=== PATIENT | female | born 1980 | race Caucasian/White ===

== ENCOUNTER 2020-12-16 16:33 | Inpatient (IN) | payer MEDICARE, OTHER ==
[2020-12-16] MEDS ORDERED: methylPREDNISolone Sod Succ/PF 125 MG/2 ML VIAL ONE (17:09)
[2020-12-16] MEDS ORDERED: cefTRIAXone\\ROCEPHIN 2 GM VIAL ONE (17:10)
[2020-12-16 17:43] LABS: BHCG - Serum Negative (NEGATIVE); Pregs Control Background? CLEAR/WHITE (CLR/WHITE); Pregs Control Bar Appear? YES (CONTROL BAR)
[2020-12-16 17:46] LABS: ALT (SGPT) 18 U/L (8-55); AST (SGOT) 28 U/L (5-34); Albumin 3.6 g/dL (3.5-5.0); Alkaline Phosphatase 95 U/L (40-110); Anion Gap 15 mmol/L (10-20); BUN (Urea Nitrogen) 20 mg/dL (7.0-18.7); Bilirubin, Total 0.8 mg/dL (0.2-1.2); CK (CPK) 67 U/L (29-168); Calc. Creatinine Clearance 0 mL/min (70-130); Calcium 7.9 mg/dL (7.8-10.44); Carbon Dioxide 25 mmol/L (22-29); Chloride 101 mmol/L (98-107); Globulin 4.1 g/dL (2.4-3.5); Glucose 111 mg/dL (70-105); Potassium 3.8 mmol/L (3.5-5.1); Protein, Total 7.7 g/dL (6.0-8.3); Sodium 137 mmol/L (136-145)
[2020-12-16] MEDS ORDERED: Azithromycin 500 MG VIAL ONE (17:47)
[2020-12-16 17:58] LABS: #Basophils 0.1 10x3/uL (0.0-0.2); #Eosinphils 0.1 10x3/uL (0.0-0.5); #Monocytes 0.5 10x3/uL (0.0-1.1); #Neutrophils 9.6 10x3/uL (1.5-8.4); %Basophils 0.5 % (0.0-2.0); %Eosinophils 0.6 % (0.0-6.0); %Lymphocytes 4.9 % (18.0-47.0); %Neutrophils 88.7 % (40.0-75.0); Hemoglobin 13.6 g/dL (12.0-15.5); Mean Corpuscular HGB CONC 31.5 g/dL (32.0-36.0); Mean Corpuscular Hemoglobin 35.3 pg (27.0-33.0); Mean Corpuscular Volume 112.2 fl (81.6-98.3); Mean Platelet Volume 11.4 fl (7.4-10.4); Platelet Count 117 10x3/uL (150-450); RBC Distribution Width 15.6 % (11.5-14.5); Red Blood Cell (RBC) Count 3.85 10x6/uL (3.90-5.03); White Blood Cell (WBC) Count 10.8 10x3/uL (3.5-10.5)
[2020-12-16] MEDS ORDERED: Furosemide 40 MG/4 ML VIAL ONE (18:53)
[2020-12-16] MEDS ORDERED: Aspirin Chewable 81 MG TAB PO SCH (20:15)
[2020-12-16 21:19] LABS: SARS-CoV-2 NAA Rapid Test Not Detected (NotDetected)
[2020-12-16 21:26] LABS: Iron 20 ug/dL (50-170); Iron Binding Capacity, Total 335 mcg/dL (265-497)
[2020-12-16 21:32] LABS: Troponin I 0.011 ng/mL (< 0.028)
[2020-12-16 21:48] LABS: Ferritin 43.58 ng/mL (10-291)
[2020-12-16] MEDS: Cefepime 2 GM in Sodium Chloride 0.9% 100 ML IVPB SCH (23:27)
[2020-12-17 04:09] VITALS: BMI 51.7
[2020-12-17 04:16] LABS: #Monocytes 0.1 10x3/uL (0.0-1.1); #Neutrophils 11.5 10x3/uL (1.5-8.4); %Basophils 0.2 % (0.0-2.0); %Lymphocytes 3.1 % (18.0-47.0); %Monocytes 0.8 % (0.0-10.0); %Neutrophils 95.2 % (40.0-75.0); Hemoglobin 12.3 g/dL (12.0-15.5); Mean Corpuscular Hemoglobin 34.8 pg (27.0-33.0); Mean Corpuscular Volume 108.8 fl (81.6-98.3); Mean Platelet Volume 10.8 fl (7.4-10.4); Platelet Count 115 10x3/uL (150-450); RBC Distribution Width 15.6 % (11.5-14.5); Red Blood Cell (RBC) Count 3.53 10x6/uL (3.90-5.03); White Blood Cell (WBC) Count 12.1 10x3/uL (3.5-10.5)
[2020-12-17 04:22] LABS: Anion Gap 14 mmol/L (10-20); BUN (Urea Nitrogen) 23 mg/dL (7.0-18.7); Calc. Creatinine Clearance 148 mL/min (70-130); Calcium 7.5 mg/dL (7.8-10.44); Carbon Dioxide 23 mmol/L (22-29); Chloride 105 mmol/L (98-107); Glucose 157 mg/dL (70-105); Potassium 3.8 mmol/L (3.5-5.1); Sodium 138 mmol/L (136-145)
[2020-12-17] MEDS: Furosemide 40 MG/4 ML VIAL SLOW IVP SCH ×3 (05:50→13:38)
[2020-12-17] MEDS: Cefepime 2 GM in Sodium Chloride 0.9% 100 ML IVPB SCH ×3 (05:50→22:54)
[2020-12-17] MEDS: Mometasone 100 MCG/Formoterol 5 MCG 120 PUFF INHALER INH SCH ×2 (06:49→19:30)
[2020-12-17] MEDS: Cholecalciferol 1,000 UNITS (25 MCG) TAB PO SCH (08:45)
[2020-12-17] MEDS: Aspirin 81 mg Enteric Coated Tablet PO SCH (08:46)
[2020-12-17] MEDS: Cyanocobalamin (Vitamin B-12) 1,000 MCG TAB PO SCH (08:46)
[2020-12-17] MEDS: Enoxaparin Sodium 40 MG/0.4 ML SYRINGE SC SCH (08:47)
[2020-12-17] MEDS: Lisinopril 2.5 MG TAB PO SCH (08:50)
[2020-12-17] MEDS: Loratadine 10 MG TAB PO SCH (08:51)
[2020-12-17] MEDS: Ubidecarenone 50 MG CAP PO SCH ×2 (08:52→20:55)
[2020-12-17] MEDS ORDERED: Furosemide 40 MG TAB PO SCH (09:00)
[2020-12-17] MEDS ORDERED: Tadalafil [Adcirca] 20 MG Tablet PO SCH (09:00)
[2020-12-17] MEDS ORDERED: AMBRISENTAN 10 MG PO SCH (09:00)
[2020-12-17] MEDS: Fluticasone Propionate Nasal Spray 16 gm Bottle NASAL SCH ×2 (09:19→20:55)
[2020-12-17] MEDS: Vancomycin HCl 1.25 GM in Sodium Chloride 0.9% 250 ML 250 ML IVPB SCH ×2 (09:20→20:55)
[2020-12-17 15:25] LABS: Bilirubin Neg (Negative); Blood, Urine 10 (Negative); Clarity Clear (Clear); Glucose, Urine (Dipstick) Normal (Negative); Ketone, Urine Negative (Negative); Leukocyte Negative (Negative); Nitrite Negative (Negative); Protein, Urine (Dipstick) Negative (Neg-Trace); Specific Gravity, Urine 1.015 (1.002-1.036); Urobilinogen Normal mg/dL (Less than 2)
[2020-12-17 16:16] LABS: Bacteria/HPF Rare-Few HPF (None Seen); RBC/HPF 0-3 HPF (0-3); Squamous Epithelial 0-3 HPF (0-3); WBC/HPF None Seen HPF (0-3)
[2020-12-17] MEDS: Communication Order-Pharmacy FS SCH (20:00)
[2020-12-18] MEDS: Cefepime 2 GM in Sodium Chloride 0.9% 100 ML IVPB SCH ×3 (05:22→22:36)
[2020-12-18] MEDS: Furosemide 40 MG/4 ML VIAL SLOW IVP SCH ×2 (05:22→13:57)
[2020-12-18 05:57] LABS: Anion Gap 14 mmol/L (10-20); BUN (Urea Nitrogen) 28 mg/dL (7.0-18.7); Calc. Creatinine Clearance 142 mL/min (70-130); Calcium 7.8 mg/dL (7.8-10.44); Carbon Dioxide 25 mmol/L (22-29); Chloride 102 mmol/L (98-107); Glucose 92 mg/dL (70-105); Potassium 4.2 mmol/L (3.5-5.1); Sodium 137 mmol/L (136-145)
[2020-12-18] MEDS: Mometasone 100 MCG/Formoterol 5 MCG 120 PUFF INHALER INH SCH ×2 (07:05→18:40)
[2020-12-18] MEDS: Communication Order-Pharmacy FS SCH (08:21)
[2020-12-18] MEDS: Vancomycin HCl 1.25 GM in Sodium Chloride 0.9% 250 ML 250 ML IVPB SCH (08:33)
[2020-12-18] MEDS: Cyanocobalamin (Vitamin B-12) 1,000 MCG TAB PO SCH (08:34)
[2020-12-18] MEDS: Cholecalciferol 1,000 UNITS (25 MCG) TAB PO SCH (08:34)
[2020-12-18] MEDS: Aspirin 81 mg Enteric Coated Tablet PO SCH (08:34)
[2020-12-18] MEDS: Loratadine 10 MG TAB PO SCH (08:34)
[2020-12-18] MEDS: Lisinopril 2.5 MG TAB PO SCH (08:34)
[2020-12-18] MEDS: Enoxaparin Sodium 40 MG/0.4 ML SYRINGE SC SCH (08:35)
[2020-12-18] MEDS: Fluticasone Propionate Nasal Spray 16 gm Bottle NASAL SCH ×2 (08:35→21:11)
[2020-12-18] MEDS: Ubidecarenone 50 MG CAP PO SCH ×2 (08:42→21:11)
[2020-12-18 09:09] LABS: Vancomycin, Trough 16.5 ug/mL
[2020-12-18] MEDS: Vancomycin HCl 1 GM in Sodium Chloride 0.9% 250 ML 250 ML IVPB SCH (21:02)
[2020-12-19 04:44] LABS: #Basophils 0.1 10x3/uL (0.0-0.2); #Eosinphils 0.1 10x3/uL (0.0-0.5); #Monocytes 0.4 10x3/uL (0.0-1.1); #Neutrophils 5.3 10x3/uL (1.5-8.4); %Eosinophils 1.3 % (0.0-6.0); %Lymphocytes 15.1 % (18.0-47.0); %Monocytes 5.6 % (0.0-10.0); %Neutrophils 76.6 % (40.0-75.0); Hemoglobin 13.1 g/dL (12.0-15.5); Mean Corpuscular HGB CONC 31.8 g/dL (32.0-36.0); Mean Corpuscular Hemoglobin 35.2 pg (27.0-33.0); Mean Corpuscular Volume 110.8 fl (81.6-98.3); Mean Platelet Volume 11.4 fl (7.4-10.4); Platelet Count 127 10x3/uL (150-450); RBC Distribution Width 15.6 % (11.5-14.5); Red Blood Cell (RBC) Count 3.72 10x6/uL (3.90-5.03)
[2020-12-19 05:01] LABS: ALT (SGPT) 14 U/L (8-55); AST (SGOT) 18 U/L (5-34); Albumin 3.1 g/dL (3.5-5.0); Alkaline Phosphatase 73 U/L (40-110); Anion Gap 13 mmol/L (10-20); BUN (Urea Nitrogen) 28 mg/dL (7.0-18.7); Bilirubin, Total 0.6 mg/dL (0.2-1.2); Calc. Creatinine Clearance 136 mL/min (70-130); Carbon Dioxide 27 mmol/L (22-29); Chloride 104 mmol/L (98-107); Globulin 3.6 g/dL (2.4-3.5); Glucose 94 mg/dL (70-105); Potassium 4.7 mmol/L (3.5-5.1); Protein, Total 6.7 g/dL (6.0-8.3); Sodium 139 mmol/L (136-145)
[2020-12-19] MEDS: Cefepime 2 GM in Sodium Chloride 0.9% 100 ML IVPB SCH (05:10)
[2020-12-19] MEDS: Furosemide 40 MG/4 ML VIAL SLOW IVP SCH (05:11)
[2020-12-19 06:34] LABS: Macrocytosis MODERATE=16-30 cells (100X) (0-5/hpf)
[2020-12-19] MEDS: Mometasone 100 MCG/Formoterol 5 MCG 120 PUFF INHALER INH SCH (08:20)
[2020-12-19] MEDS: Enoxaparin Sodium 40 MG/0.4 ML SYRINGE SC SCH (08:38)
[2020-12-19] MEDS: Communication Order-Pharmacy FS SCH (08:38)
[2020-12-19] MEDS: Ubidecarenone 50 MG CAP PO SCH (08:39)
[2020-12-19] MEDS: Loratadine 10 MG TAB PO SCH (08:39)
[2020-12-19] MEDS: Fluticasone Propionate Nasal Spray 16 gm Bottle NASAL SCH (08:39)
[2020-12-19] MEDS: Cyanocobalamin (Vitamin B-12) 1,000 MCG TAB PO SCH (08:39)
[2020-12-19] MEDS: Aspirin 81 mg Enteric Coated Tablet PO SCH (08:39)
[2020-12-19] MEDS: Cholecalciferol 1,000 UNITS (25 MCG) TAB PO SCH (08:39)
[2020-12-19] MEDS: Lisinopril 2.5 MG TAB PO SCH (08:39)
[2020-12-19] MEDS: Vancomycin HCl 1 GM in Sodium Chloride 0.9% 250 ML 250 ML IVPB SCH (08:40)
[2020-12-19 12:11] VITALS: BP 98/61; TEMP 98.2
== END 2020-12-19 12:16 | disposition home or self-care (01) | DRG 871 ==
LOC: CSHERS 16:33 → CJX 16:33 → CSHICU 21:00 → CSHTELE 12-17 15:36
PROVIDERS: ADMIT Family Medicine; ATTEND Internal Medicine
DX: A41.9 Sepsis, unspecified organism (principal); J96.01 Acute respiratory failure with hypoxia; I50.31 Acute diastolic (congestive) heart failure; J18.9 Pneumonia, unspecified organism; Z68.43 Body mass index [BMI] 50.0-59.9, adult; I11.0 Hypertensive heart disease with heart failure; Z20.822 Contact with and (suspected) exposure to COVID-19; Q90.9 Down syndrome, unspecified; I27.21 Secondary pulmonary arterial hypertension; G47.33 Obstructive sleep apnea (adult) (pediatric); E66.01 Morbid (severe) obesity due to excess calories; J45.909 Unspecified asthma, uncomplicated; D53.9 Nutritional anemia, unspecified; D69.6 Thrombocytopenia, unspecified; Z90.89 Acquired absence of other organs; Z79.899 Other long term (current) drug therapy; E78.5 Hyperlipidemia, unspecified; Q24.9 Congenital malformation of heart, unspecified
CPT/HCPCS: 36415; 71045; 80048; 80053; 80202; 81001; 82550; 82607; 82728; 82746; 83540; 83550; 83605; 83735; 83880; 84145; 84443; 84484; 84703; 85025; 87040; 93005; 93010; 93306; 94664; 94760; 96365; 96367; 96375; J0456; J0692; J0696; J1650; J1940; J1956; J2930; J3370; J3490; J7030; J7050; U0002

== ENCOUNTER 2020-12-30 16:05 | Inpatient (IN) | payer MEDICARE, OTHER ==
[2020-12-30 16:50] LABS: #Basophils 0.1 10x3/uL (0.0-0.2); #Monocytes 0.5 10x3/uL (0.0-1.1); #Neutrophils 10.7 10x3/uL (1.5-8.4); %Basophils 0.6 % (0.0-2.0); %Eosinophils 0.3 % (0.0-6.0); %Lymphocytes 5.2 % (18.0-47.0); %Monocytes 4.4 % (0.0-10.0); %Neutrophils 88.9 % (40.0-75.0); Hemoglobin 13.1 g/dL (12.0-15.5); Mean Corpuscular Hemoglobin 35.2 pg (27.0-33.0); Mean Corpuscular Volume 110.2 fl (81.6-98.3); Mean Platelet Volume 10.9 fl (7.4-10.4); Platelet Count 143 10x3/uL (150-450); RBC Distribution Width 15.5 % (11.5-14.5); Red Blood Cell (RBC) Count 3.72 10x6/uL (3.90-5.03)
[2020-12-30 17:02] LABS: ALT (SGPT) 20 U/L (8-55); AST (SGOT) 26 U/L (5-34); Albumin 3.7 g/dL (3.5-5.0); Alkaline Phosphatase 104 U/L (40-110); Anion Gap 15 mmol/L (10-20); BUN (Urea Nitrogen) 16 mg/dL (7.0-18.7); Bilirubin, Total 0.9 mg/dL (0.2-1.2); Calc. Creatinine Clearance 0 mL/min (70-130); Calcium 8.8 mg/dL (7.8-10.44); Carbon Dioxide 28 mmol/L (22-29); Chloride 98 mmol/L (98-107); Globulin 4.5 g/dL (2.4-3.5); Glucose 98 mg/dL (70-105); Potassium 3.3 mmol/L (3.5-5.1); Protein, Total 8.2 g/dL (6.0-8.3); Sodium 138 mmol/L (136-145)
[2020-12-30] MEDS ORDERED: Cefepime 2 GM VIAL ONE (17:12)
[2020-12-30] MEDS ORDERED: Furosemide 40 MG/4 ML VIAL ONE (18:22)
[2020-12-30 18:24] LABS: Bilirubin Neg (Negative); Blood, Urine 50 (Negative); Clarity Slightly Cloudy (Clear); Glucose, Urine (Dipstick) Normal (Negative); Ketone, Urine Negative (Negative); Leukocyte 100 (Negative); Nitrite Negative (Negative); Protein, Urine (Dipstick) Negative (Neg-Trace); Urobilinogen Normal mg/dL (Less than 2); pH, Urine 6.5 (5.0-9.0)
[2020-12-30 19:01] LABS: Bacteria/HPF 4+ HPF (None Seen); Transitional Epithelial 0-3 HPF (None Seen)
[2020-12-30 19:04] LABS: Yeast-Budding Rare HPF (None Seen)
[2020-12-30 19:59] LABS: Lactic Acid 2.3 mmol/L (0.5-2.2)
[2020-12-30 20:05] LABS: Troponin I Less than 0.010 ng/mL (< 0.028)
[2020-12-30 20:14] LABS: SARS-CoV-2 NAA Rapid Test Not Detected (NotDetected)
[2020-12-30] MEDS ORDERED: Aspirin 325 MG TAB PO SCH (22:00)
[2020-12-30] MEDS ORDERED: Vancomycin HCl 1 GM in Sodium Chloride 0.9% 250 ML 250 ML IVPB SCH (22:00)
[2020-12-30 22:40] VITALS: BMI 45.7
[2020-12-30] MEDS: Potassium Chloride 20 MEQ TAB PO SCH (22:57)
[2020-12-30] MEDS ORDERED: Furosemide 40 MG/4 ML VIAL SLOW IVP SCH (23:00)
[2020-12-30 23:22] LABS: Troponin I Less than 0.010 ng/mL (< 0.028)
[2020-12-31] MEDS: Potassium Chloride 20 MEQ TAB PO SCH (03:05)
[2020-12-31] MEDS: Cefepime 2 GM in Sodium Chloride 0.9% 100 ML IVPB SCH ×2 (03:07→15:05)
[2020-12-31 03:59] LABS: #Monocytes 0.4 10x3/uL (0.0-1.1); #Neutrophils 6.9 10x3/uL (1.5-8.4); %Basophils 0.5 % (0.0-2.0); %Eosinophils 0.5 % (0.0-6.0); %Lymphocytes 12.3 % (18.0-47.0); %Monocytes 4.4 % (0.0-10.0); %Neutrophils 82.1 % (40.0-75.0); Hemoglobin 11.6 g/dL (12.0-15.5); Mean Corpuscular HGB CONC 32.2 g/dL (32.0-36.0); Mean Corpuscular Hemoglobin 34.8 pg (27.0-33.0); Mean Corpuscular Volume 108.1 fl (81.6-98.3); Mean Platelet Volume 10.7 fl (7.4-10.4); Platelet Count 123 10x3/uL (150-450); RBC Distribution Width 15.3 % (11.5-14.5); Red Blood Cell (RBC) Count 3.33 10x6/uL (3.90-5.03); White Blood Cell (WBC) Count 8.4 10x3/uL (3.5-10.5)
[2020-12-31 04:12] LABS: Anion Gap 13 mmol/L (10-20); BUN (Urea Nitrogen) 15 mg/dL (7.0-18.7); Calc. Creatinine Clearance 149 mL/min (70-130); Calcium 8.1 mg/dL (7.8-10.44); Carbon Dioxide 25 mmol/L (22-29); Chloride 103 mmol/L (98-107); Glucose 92 mg/dL (70-105); Potassium 3.7 mmol/L (3.5-5.1); Sodium 137 mmol/L (136-145)
[2020-12-31 04:16] LABS: Troponin I Less than 0.010 ng/mL (< 0.028)
[2020-12-31] MEDS: Fluticasone Propionate Nasal Spray 16 gm Bottle NASAL SCH ×3 (04:49→21:37)
[2020-12-31] MEDS: Furosemide 40 MG/4 ML VIAL SLOW IVP SCH ×2 (06:15→15:05)
[2020-12-31] MEDS: Mometasone/Formoterol 60 PUFF AER INH SCH ×2 (07:54→19:40)
[2020-12-31] MEDS ORDERED: AMBRISENTAN 10 MG PO SCH (09:00)
[2020-12-31] MEDS ORDERED: Tadalafil [Adcirca] 20 MG Tablet PO SCH (09:00)
[2020-12-31] MEDS: Aspirin Chewable 81 MG TAB PO SCH (09:19)
[2020-12-31] MEDS: Vancomycin HCl 1.5 GM in Sodium Chloride 0.9% 250 ML 300 ML IVPB SCH ×2 (09:19→21:47)
[2020-12-31] MEDS: Cholecalciferol 1,000 UNITS (25 MCG) TAB PO SCH (09:20)
[2020-12-31] MEDS: Ubidecarenone 50 MG CAP PO SCH ×2 (09:20→21:38)
[2020-12-31] MEDS: Loratadine 10 MG TAB PO SCH (09:20)
[2020-12-31] MEDS: Cyanocobalamin (Vitamin B-12) 1,000 MCG TAB PO SCH (09:20)
[2020-12-31] MEDS: Enoxaparin Sodium 40 MG/0.4 ML SYRINGE SC SCH (09:21)
[2020-12-31 22:44] LABS: Bilirubin Neg (Negative); Blood, Urine 150 (Negative); Clarity Cloudy (Clear); Glucose, Urine (Dipstick) Normal (Negative); Ketone, Urine Negative (Negative); Leukocyte 500 (Negative); Nitrite Negative (Negative); Protein, Urine (Dipstick) Negative (Neg-Trace); Urobilinogen Normal mg/dL (Less than 2)
[2020-12-31 22:49] LABS: Urine Culture Reflex No No
[2020-12-31 23:06] LABS: Bacteria/HPF 4+ HPF (None Seen); RBC/HPF 0-3 HPF (0-3)
[2021-01-01] MEDS: Guaifenesin DM 100-10/5 ML UDCUP PO PRN (03:19)
[2021-01-01] MEDS: Cefepime 2 GM in Sodium Chloride 0.9% 100 ML IVPB SCH ×2 (03:36→16:38)
[2021-01-01 04:33] LABS: #Eosinphils 0.1 10x3/uL (0.0-0.5); #Monocytes 0.4 10x3/uL (0.0-1.1); #Neutrophils 5.8 10x3/uL (1.5-8.4); %Basophils 0.6 % (0.0-2.0); %Eosinophils 1.4 % (0.0-6.0); %Lymphocytes 11.5 % (18.0-47.0); %Monocytes 5.2 % (0.0-10.0); %Neutrophils 80.9 % (40.0-75.0); Hemoglobin 11.6 g/dL (12.0-15.5); Mean Corpuscular HGB CONC 31.9 g/dL (32.0-36.0); Mean Corpuscular Hemoglobin 34.3 pg (27.0-33.0); Mean Corpuscular Volume 107.7 fl (81.6-98.3); Mean Platelet Volume 10.9 fl (7.4-10.4); Platelet Count 124 10x3/uL (150-450); RBC Distribution Width 15.3 % (11.5-14.5); Red Blood Cell (RBC) Count 3.38 10x6/uL (3.90-5.03); White Blood Cell (WBC) Count 7.1 10x3/uL (3.5-10.5)
[2021-01-01 04:44] LABS: ALT (SGPT) 12 U/L (8-55); AST (SGOT) 17 U/L (5-34); Albumin 3.1 g/dL (3.5-5.0); Alkaline Phosphatase 84 U/L (40-110); Anion Gap 11 mmol/L (10-20); BUN (Urea Nitrogen) 14 mg/dL (7.0-18.7); Calc. Creatinine Clearance 130 mL/min (70-130); Carbon Dioxide 28 mmol/L (22-29); Chloride 101 mmol/L (98-107); Globulin 3.6 g/dL (2.4-3.5); Glucose 111 mg/dL (70-105); Magnesium 1.8 mg/dL (1.6-2.6); Potassium 3.5 mmol/L (3.5-5.1); Protein, Total 6.7 g/dL (6.0-8.3); Sodium 136 mmol/L (136-145)
[2021-01-01 04:49] LABS: Troponin I Less than 0.010 ng/mL (< 0.028)
[2021-01-01] MEDS: Furosemide 40 MG/4 ML VIAL SLOW IVP SCH ×2 (06:07→16:37)
[2021-01-01] MEDS: Mometasone/Formoterol 60 PUFF AER INH SCH (06:58)
[2021-01-01] MEDS: Cholecalciferol 1,000 UNITS (25 MCG) TAB PO SCH (09:18)
[2021-01-01] MEDS: Cyanocobalamin (Vitamin B-12) 1,000 MCG TAB PO SCH (09:18)
[2021-01-01] MEDS: Vancomycin HCl 1.5 GM in Sodium Chloride 0.9% 250 ML 300 ML IVPB SCH ×2 (09:18→20:50)
[2021-01-01] MEDS: Aspirin Chewable 81 MG TAB PO SCH (09:18)
[2021-01-01] MEDS: Loratadine 10 MG TAB PO SCH (09:18)
[2021-01-01] MEDS: Fluticasone Propionate Nasal Spray 16 gm Bottle NASAL SCH ×2 (09:19→20:48)
[2021-01-01] MEDS: Ubidecarenone 50 MG CAP PO SCH ×2 (09:19→20:48)
[2021-01-01] MEDS: Enoxaparin Sodium 40 MG/0.4 ML SYRINGE SC SCH (09:19)
[2021-01-01] MEDS ORDERED: Spironolactone 25 MG TAB PO SCH (15:15)
[2021-01-02] MEDS: Guaifenesin DM 100-10/5 ML UDCUP PO PRN ×2 (00:15→15:34)
[2021-01-02] MEDS: Mometasone/Formoterol 60 PUFF AER INH SCH ×3 (02:21→19:12)
[2021-01-02] MEDS: Cefepime 2 GM in Sodium Chloride 0.9% 100 ML IVPB SCH ×2 (03:48→16:49)
[2021-01-02] MEDS: Furosemide 40 MG/4 ML VIAL SLOW IVP SCH (06:04)
[2021-01-02 06:08] LABS: Anion Gap 14 mmol/L (10-20); BUN (Urea Nitrogen) 15 mg/dL (7.0-18.7); Calc. Creatinine Clearance 138 mL/min (70-130); Calcium 8.1 mg/dL (7.8-10.44); Carbon Dioxide 26 mmol/L (22-29); Chloride 103 mmol/L (98-107); Glucose 98 mg/dL (70-105); Potassium 3.7 mmol/L (3.5-5.1); Sodium 139 mmol/L (136-145)
[2021-01-02 06:40] LABS: #Basophils 0.1 10x3/uL (0.0-0.2); #Eosinphils 0.2 10x3/uL (0.0-0.5); #Monocytes 0.4 10x3/uL (0.0-1.1); %Basophils 0.8 % (0.0-2.0); %Lymphocytes 14.5 % (18.0-47.0); %Monocytes 5.9 % (0.0-10.0); %Neutrophils 75.2 % (40.0-75.0); Hemoglobin 11.7 g/dL (12.0-15.5); Mean Corpuscular HGB CONC 32.6 g/dL (32.0-36.0); Mean Corpuscular Hemoglobin 34.7 pg (27.0-33.0); Mean Corpuscular Volume 106.5 fl (81.6-98.3); Mean Platelet Volume 12.3 fl (7.4-10.4); Platelet Count 112 10x3/uL (150-450); RBC Distribution Width 15.5 % (11.5-14.5); Red Blood Cell (RBC) Count 3.37 10x6/uL (3.90-5.03); White Blood Cell (WBC) Count 6.6 10x3/uL (3.5-10.5)
[2021-01-02 06:42] LABS: Macrocytosis SLIGHT = 6-15 cells (100X) (0-5/hpf)
[2021-01-02] MEDS: Ubidecarenone 50 MG CAP PO SCH ×2 (09:02→21:50)
[2021-01-02] MEDS: Cyanocobalamin (Vitamin B-12) 1,000 MCG TAB PO SCH (09:02)
[2021-01-02] MEDS: Cholecalciferol 1,000 UNITS (25 MCG) TAB PO SCH (09:03)
[2021-01-02] MEDS: Loratadine 10 MG TAB PO SCH (09:03)
[2021-01-02] MEDS: Enoxaparin Sodium 40 MG/0.4 ML SYRINGE SC SCH (09:04)
[2021-01-02] MEDS: Vancomycin HCl 1.5 GM in Sodium Chloride 0.9% 250 ML 300 ML IVPB SCH ×2 (09:04→21:53)
[2021-01-02] MEDS: Aspirin Chewable 81 MG TAB PO SCH (09:17)
[2021-01-02] MEDS: Spironolactone 25 MG TAB PO SCH (09:18)
[2021-01-02] MEDS ORDERED: Potassium Bicarbonate/Cit Ac 20 MEQ TAB PO SCH (11:00)
[2021-01-02] MEDS: Furosemide 20 MG/2 ML VIAL SLOW IVP SCH (14:28)
[2021-01-02] MEDS: Fluticasone Propionate Nasal Spray 16 gm Bottle NASAL SCH ×2 (15:20→21:59)
[2021-01-02] MEDS ORDERED: Sodium Chloride 0.9% 250 ML 250 ML ONE (21:41)
[2021-01-03] MEDS: Cefepime 2 GM in Sodium Chloride 0.9% 100 ML IVPB SCH ×2 (04:12→16:15)
[2021-01-03] MEDS: Furosemide 20 MG/2 ML VIAL SLOW IVP SCH ×2 (06:27→15:00)
[2021-01-03 07:10] LABS: #Basophils 0.1 10x3/uL (0.0-0.2); #Eosinphils 0.3 10x3/uL (0.0-0.5); #Monocytes 0.4 10x3/uL (0.0-1.1); %Basophils 1.1 % (0.0-2.0); %Eosinophils 4.8 % (0.0-6.0); %Lymphocytes 16.9 % (18.0-47.0); %Monocytes 6.7 % (0.0-10.0); %Neutrophils 69.8 % (40.0-75.0); Hemoglobin 12.1 g/dL (12.0-15.5); Mean Corpuscular HGB CONC 32.3 g/dL (32.0-36.0); Mean Corpuscular Hemoglobin 34.9 pg (27.0-33.0); Mean Corpuscular Volume 108.1 fl (81.6-98.3); Mean Platelet Volume 11.3 fl (7.4-10.4); Platelet Count 137 10x3/uL (150-450); RBC Distribution Width 15.2 % (11.5-14.5); Red Blood Cell (RBC) Count 3.47 10x6/uL (3.90-5.03); White Blood Cell (WBC) Count 5.7 10x3/uL (3.5-10.5)
[2021-01-03] MEDS: Mometasone/Formoterol 60 PUFF AER INH SCH ×2 (07:20→19:43)
[2021-01-03 07:35] LABS: Anion Gap 12 mmol/L (10-20); BUN (Urea Nitrogen) 15 mg/dL (7.0-18.7); Calc. Creatinine Clearance 153 mL/min (70-130); Calcium 8.2 mg/dL (7.8-10.44); Carbon Dioxide 29 mmol/L (22-29); Chloride 104 mmol/L (98-107); Glucose 93 mg/dL (70-105); Potassium 3.7 mmol/L (3.5-5.1); Sodium 141 mmol/L (136-145)
[2021-01-03] MEDS ORDERED: Potassium Chloride 20 MEQ TAB PO SCH (10:15)
[2021-01-03] MEDS: Cholecalciferol 1,000 UNITS (25 MCG) TAB PO SCH (10:34)
[2021-01-03] MEDS: Loratadine 10 MG TAB PO SCH (10:35)
[2021-01-03] MEDS: Ubidecarenone 50 MG CAP PO SCH ×2 (10:35→21:32)
[2021-01-03] MEDS: Cyanocobalamin (Vitamin B-12) 1,000 MCG TAB PO SCH (10:35)
[2021-01-03] MEDS: Vancomycin HCl 1.5 GM in Sodium Chloride 0.9% 250 ML 300 ML IVPB SCH (10:36)
[2021-01-03] MEDS: Enoxaparin Sodium 40 MG/0.4 ML SYRINGE SC SCH (10:36)
[2021-01-03] MEDS: Spironolactone 25 MG TAB PO SCH (11:09)
[2021-01-03] MEDS: Aspirin Chewable 81 MG TAB PO SCH (11:09)
[2021-01-03] MEDS: Fluticasone Propionate Nasal Spray 16 gm Bottle NASAL SCH ×2 (11:09→21:43)
[2021-01-03] MEDS ORDERED: Albumin 25% 25 GM/100 ML BOT IVPB SCH (17:35)
[2021-01-03] MEDS ORDERED: Furosemide 40 MG/4 ML VIAL SLOW IVP SCH (17:45)
[2021-01-04] MEDS: Furosemide 20 MG/2 ML VIAL SLOW IVP SCH ×2 (06:25→15:49)
[2021-01-04 06:47] LABS: #Basophils 0.1 10x3/uL (0.0-0.2); #Eosinphils 0.2 10x3/uL (0.0-0.5); #Monocytes 0.4 10x3/uL (0.0-1.1); #Neutrophils 3.9 10x3/uL (1.5-8.4); %Basophils 1.1 % (0.0-2.0); %Eosinophils 4.1 % (0.0-6.0); %Lymphocytes 17.2 % (18.0-47.0); %Monocytes 6.3 % (0.0-10.0); %Neutrophils 70.2 % (40.0-75.0); Hemoglobin 12.3 g/dL (12.0-15.5); Mean Corpuscular HGB CONC 32.2 g/dL (32.0-36.0); Mean Corpuscular Hemoglobin 34.3 pg (27.0-33.0); Mean Corpuscular Volume 106.4 fl (81.6-98.3); Mean Platelet Volume 11.9 fl (7.4-10.4); Platelet Count 107 10x3/uL (150-450); RBC Distribution Width 15.3 % (11.5-14.5); Red Blood Cell (RBC) Count 3.59 10x6/uL (3.90-5.03); White Blood Cell (WBC) Count 5.6 10x3/uL (3.5-10.5)
[2021-01-04 07:13] LABS: Anion Gap 15 mmol/L (10-20); BUN (Urea Nitrogen) 16 mg/dL (7.0-18.7); Calc. Creatinine Clearance 143 mL/min (70-130); Calcium 8.6 mg/dL (7.8-10.44); Carbon Dioxide 25 mmol/L (22-29); Chloride 104 mmol/L (98-107); Glucose 88 mg/dL (70-105); Potassium 4.2 mmol/L (3.5-5.1); Sodium 140 mmol/L (136-145)
[2021-01-04] MEDS: Mometasone/Formoterol 60 PUFF AER INH SCH ×2 (08:06→19:05)
[2021-01-04] MEDS: Ubidecarenone 50 MG CAP PO SCH ×2 (10:36→21:05)
[2021-01-04] MEDS: Fluticasone Propionate Nasal Spray 16 gm Bottle NASAL SCH ×2 (10:36→21:12)
[2021-01-04] MEDS: Enoxaparin Sodium 40 MG/0.4 ML SYRINGE SC SCH (10:36)
[2021-01-04] MEDS: Cholecalciferol 1,000 UNITS (25 MCG) TAB PO SCH (10:37)
[2021-01-04] MEDS: Spironolactone 25 MG TAB PO SCH (10:37)
[2021-01-04] MEDS: Aspirin Chewable 81 MG TAB PO SCH (10:38)
[2021-01-04] MEDS: Loratadine 10 MG TAB PO SCH (10:39)
[2021-01-04] MEDS: Cyanocobalamin (Vitamin B-12) 1,000 MCG TAB PO SCH (10:39)
[2021-01-04] MEDS ORDERED: Spironolactone 25 MG TAB PO SCH (11:00)
[2021-01-04 17:32] LABS: Actual Bicarbonate (HCO3a) 26.1 mEq/L (22-28); Base Excess (BEa) 1.1 mEq/L (-2.0 to +3.0); CO2 Tension 42.8 mmHg (35.0-45.0); Calcium, Ionized (arterial) 1.17 mmol/L (1.12-1.30); Carboxyhemoglobin (COHb) 0.4 gm% (0.0-3.0); Hemoglobin (Hb) 13.2 g/dL (12.0-16.0); O2 Tension (PaO2), arterial 67.5 mmHg (80.0-100.0); Potassium - ABG Lab 3.9 mmol/L (3.70-5.30); Puncture Site LRA
[2021-01-04] MEDS ORDERED: Albumin 25% 25 GM/100 ML BOT IVPB SCH (18:00)
[2021-01-04] MEDS ORDERED: Furosemide 40 MG/4 ML VIAL SLOW IVP SCH (18:00)
[2021-01-05 05:30] LABS: #Basophils 0.1 10x3/uL (0.0-0.2); #Eosinphils 0.2 10x3/uL (0.0-0.5); #Monocytes 0.3 10x3/uL (0.0-1.1); %Basophils 0.9 % (0.0-2.0); %Eosinophils 4.3 % (0.0-6.0); %Lymphocytes 16.9 % (18.0-47.0); %Monocytes 6.1 % (0.0-10.0); %Neutrophils 71.4 % (40.0-75.0); Mean Corpuscular HGB CONC 31.9 g/dL (32.0-36.0); Mean Corpuscular Hemoglobin 34.6 pg (27.0-33.0); Mean Corpuscular Volume 108.2 fl (81.6-98.3); Mean Platelet Volume 11.4 fl (7.4-10.4); Platelet Count 130 10x3/uL (150-450); RBC Distribution Width 15.2 % (11.5-14.5); Red Blood Cell (RBC) Count 3.76 10x6/uL (3.90-5.03); White Blood Cell (WBC) Count 5.6 10x3/uL (3.5-10.5)
[2021-01-05 05:31] LABS: Anion Gap 13 mmol/L (10-20); BUN (Urea Nitrogen) 15 mg/dL (7.0-18.7); Calc. Creatinine Clearance 146 mL/min (70-130); Calcium 9.1 mg/dL (7.8-10.44); Carbon Dioxide 30 mmol/L (22-29); Chloride 101 mmol/L (98-107); Glucose 89 mg/dL (70-105); Potassium 3.8 mmol/L (3.5-5.1); Sodium 140 mmol/L (136-145)
[2021-01-05] MEDS: Furosemide 20 MG/2 ML VIAL SLOW IVP SCH ×2 (06:45→15:38)
[2021-01-05] MEDS: Mometasone/Formoterol 60 PUFF AER INH SCH ×2 (07:50→19:30)
[2021-01-05] MEDS: Loratadine 10 MG TAB PO SCH (11:05)
[2021-01-05] MEDS: Aspirin Chewable 81 MG TAB PO SCH (11:05)
[2021-01-05] MEDS: Cholecalciferol 1,000 UNITS (25 MCG) TAB PO SCH (11:05)
[2021-01-05] MEDS: Enoxaparin Sodium 40 MG/0.4 ML SYRINGE SC SCH (11:06)
[2021-01-05] MEDS: Spironolactone 25 MG TAB PO SCH (11:06)
[2021-01-05] MEDS: Cyanocobalamin (Vitamin B-12) 1,000 MCG TAB PO SCH (11:06)
[2021-01-05] MEDS: Fluticasone Propionate Nasal Spray 16 gm Bottle NASAL SCH ×2 (11:07→22:54)
[2021-01-05] MEDS: Ubidecarenone 50 MG CAP PO SCH ×2 (14:51→22:55)
[2021-01-06] MEDS: Furosemide 20 MG/2 ML VIAL SLOW IVP SCH ×2 (06:26→15:13)
[2021-01-06 06:52] LABS: Anion Gap 14 mmol/L (10-20); BUN (Urea Nitrogen) 15 mg/dL (7.0-18.7); Calc. Creatinine Clearance 153 mL/min (70-130); Calcium 8.9 mg/dL (7.8-10.44); Carbon Dioxide 26 mmol/L (22-29); Chloride 104 mmol/L (98-107); Glucose 87 mg/dL (70-105); Potassium 4.1 mmol/L (3.5-5.1); Sodium 140 mmol/L (136-145)
[2021-01-06] MEDS: Mometasone/Formoterol 60 PUFF AER INH SCH ×2 (07:23→19:32)
[2021-01-06] MEDS: Cholecalciferol 1,000 UNITS (25 MCG) TAB PO SCH (10:13)
[2021-01-06] MEDS: Cyanocobalamin (Vitamin B-12) 1,000 MCG TAB PO SCH (10:14)
[2021-01-06] MEDS: Ubidecarenone 50 MG CAP PO SCH ×2 (10:14→22:02)
[2021-01-06] MEDS: Enoxaparin Sodium 40 MG/0.4 ML SYRINGE SC SCH (10:14)
[2021-01-06] MEDS: Spironolactone 25 MG TAB PO SCH (10:14)
[2021-01-06] MEDS: Loratadine 10 MG TAB PO SCH (10:14)
[2021-01-06] MEDS: Aspirin Chewable 81 MG TAB PO SCH (10:14)
[2021-01-06] MEDS: Fluticasone Propionate Nasal Spray 16 gm Bottle NASAL SCH ×2 (10:15→22:01)
[2021-01-07] MEDS: Furosemide 20 MG/2 ML VIAL SLOW IVP SCH (06:02)
[2021-01-07] MEDS: Mometasone/Formoterol 60 PUFF AER INH SCH ×2 (06:52→19:50)
[2021-01-07 06:54] LABS: Anion Gap 13 mmol/L (10-20); BUN (Urea Nitrogen) 18 mg/dL (7.0-18.7); Calc. Creatinine Clearance 153 mL/min (70-130); Calcium 9.1 mg/dL (7.8-10.44); Carbon Dioxide 29 mmol/L (22-29); Chloride 104 mmol/L (98-107); Glucose 89 mg/dL (70-105); Potassium 3.8 mmol/L (3.5-5.1); Sodium 142 mmol/L (136-145)
[2021-01-07] MEDS: Ubidecarenone 50 MG CAP PO SCH ×2 (09:36→21:09)
[2021-01-07] MEDS: Spironolactone 25 MG TAB PO SCH (09:36)
[2021-01-07] MEDS: Loratadine 10 MG TAB PO SCH (09:37)
[2021-01-07] MEDS: Cholecalciferol 1,000 UNITS (25 MCG) TAB PO SCH (09:37)
[2021-01-07] MEDS: Cyanocobalamin (Vitamin B-12) 1,000 MCG TAB PO SCH (09:37)
[2021-01-07] MEDS: Fluticasone Propionate Nasal Spray 16 gm Bottle NASAL SCH ×2 (09:41→21:10)
[2021-01-07] MEDS: Aspirin Chewable 81 MG TAB PO SCH (09:42)
[2021-01-07] MEDS: Enoxaparin Sodium 40 MG/0.4 ML SYRINGE SC SCH (09:42)
[2021-01-07] MEDS ORDERED: Furosemide 40 MG TAB PO SCH (12:00)
[2021-01-08] MEDS: Mometasone/Formoterol 60 PUFF AER INH SCH (07:00)
[2021-01-08 07:17] LABS: Anion Gap 15 mmol/L (10-20); BUN (Urea Nitrogen) 17 mg/dL (7.0-18.7); Calc. Creatinine Clearance 156 mL/min (70-130); Calcium 9.3 mg/dL (7.8-10.44); Carbon Dioxide 27 mmol/L (22-29); Chloride 104 mmol/L (98-107); Glucose 84 mg/dL (70-105); Sodium 142 mmol/L (136-145)
[2021-01-08] MEDS ORDERED: Furosemide 40 MG TAB PO SCH (07:30)
[2021-01-08 08:01] VITALS: TEMP 97.8
[2021-01-08] MEDS: Cyanocobalamin (Vitamin B-12) 1,000 MCG TAB PO SCH (10:30)
[2021-01-08] MEDS: Cholecalciferol 1,000 UNITS (25 MCG) TAB PO SCH (10:30)
[2021-01-08] MEDS: Loratadine 10 MG TAB PO SCH (10:31)
[2021-01-08] MEDS: Fluticasone Propionate Nasal Spray 16 gm Bottle NASAL SCH (10:31)
[2021-01-08] MEDS: Spironolactone 25 MG TAB PO SCH (10:31)
[2021-01-08] MEDS: Ubidecarenone 50 MG CAP PO SCH (10:31)
[2021-01-08] MEDS: Enoxaparin Sodium 40 MG/0.4 ML SYRINGE SC SCH (10:32)
[2021-01-08] MEDS: Aspirin Chewable 81 MG TAB PO SCH (10:32)
[2021-01-08 12:38] VITALS: BP 112/69
== END 2021-01-08 12:45 | DRG 291 ==
LOC: CSHERS 16:05 → CSHTELE 21:34 → OBSVTOIN 12-31 08:37
PROVIDERS: ADMIT Family Medicine; ATTEND Family Medicine
DX: I11.0 Hypertensive heart disease with heart failure (principal); J18.9 Pneumonia, unspecified organism; J96.01 Acute respiratory failure with hypoxia; E87.2 Acidosis; Z68.42 Body mass index [BMI] 45.0-49.9, adult; T80.29XA Infection following other infusion, transfusion and therapeutic injection, initial encounter; L03.114 Cellulitis of left upper limb; Z20.822 Contact with and (suspected) exposure to COVID-19; I27.21 Secondary pulmonary arterial hypertension; I50.33 Acute on chronic diastolic (congestive) heart failure; E78.5 Hyperlipidemia, unspecified; E66.01 Morbid (severe) obesity due to excess calories; Q24.9 Congenital malformation of heart, unspecified; Q90.9 Down syndrome, unspecified; G47.33 Obstructive sleep apnea (adult) (pediatric); J45.909 Unspecified asthma, uncomplicated; Z90.89 Acquired absence of other organs; Z80.0 Family history of malignant neoplasm of digestive organs; Z80.8 Family history of malignant neoplasm of other organs or systems; Z79.899 Other long term (current) drug therapy
CPT/HCPCS: 36415; 36600; 71045; 80048; 80053; 81001; 81003; 81015; 82805; 83605; 83735; 83880; 84484; 85025; 87040; 87077; 87086; 87149; 87186; 87804; 93005; 93010; 94640; 94664; 94760; 96365; 96366; 96367; 96375; J0692; J1650; J1940; J1956; J3370; J3490; J7050; J7620; P9047; U0002

== ENCOUNTER 2021-08-01 15:44 | Inpatient (IN) | payer MEDICARE, OTHER ==
[2021-08-01 16:28] LABS: #Eosinphils 0.1 10x3/uL (0.0-0.5); #Monocytes 0.4 10x3/uL (0.0-1.1); #Neutrophils 8.1 10x3/uL (1.5-8.4); %Basophils 0.4 % (0.0-2.0); %Eosinophils 0.7 % (0.0-6.0); %Lymphocytes 4.8 % (18.0-47.0); %Monocytes 4.7 % (0.0-10.0); Hemoglobin 12.5 g/dL (12.0-15.5); Mean Corpuscular HGB CONC 31.3 g/dL (32.0-36.0); Mean Corpuscular Hemoglobin 32.7 pg (27.0-33.0); Mean Corpuscular Volume 104.5 fl (81.6-98.3); Mean Platelet Volume 11.4 fl (7.4-10.4); Platelet Count 119 10x3/uL (150-450); Red Blood Cell (RBC) Count 3.82 10x6/uL (3.90-5.03); White Blood Cell (WBC) Count 9.1 10x3/uL (3.5-10.5)
[2021-08-01 16:34] LABS: Actual Bicarbonate (HCO3v) 30 mEq/L (22-28); Base Excess 2.9 mEq/L (-2.0 to +3.0); Calcium, Ionized (venous) 1.07 mmol/L (1.16-1.32); Chloride (VBG) 100 mmol/L (98-106); Hemoglobin (Hb) 13.1 g/dL (11.7-15.5); Potassium (VBG) 3.64 mmol/L (3.70-5.30); Puncture Site Other Site; Sodium 124.5 mmol/L (133-146); pH (venous) 7.35 (7.32-7.43)
[2021-08-01 16:36] LABS: ALT (SGPT) 14 U/L (8-55); AST (SGOT) 33 U/L (5-34); Albumin 3.9 g/dL (3.5-5.0); Alkaline Phosphatase 136 U/L (40-110); Anion Gap 13 mmol/L (10-20); BUN (Urea Nitrogen) 20 mg/dL (7.0-18.7); Bilirubin, Total 1.3 mg/dL (0.2-1.2); Calc. Creatinine Clearance 0 mL/min (70-130); Calcium 8.7 mg/dL (7.8-10.44); Carbon Dioxide 29 mmol/L (22-29); Chloride 101 mmol/L (98-107); Globulin 5.2 g/dL (2.4-3.5); Glucose 93 mg/dL (70-105); Magnesium 2.2 mg/dL (1.6-2.6); Potassium 3.7 mmol/L (3.5-5.1); Protein, Total 9.1 g/dL (6.0-8.3); Sodium 139 mmol/L (136-145)
[2021-08-01] MEDS ORDERED: cefTRIAXone\\ROCEPHIN 1 GM VIAL ONE (16:54)
[2021-08-01] MEDS ORDERED: Furosemide 40 MG/4 ML VIAL ONE (16:54)
[2021-08-01 17:05] LABS: SARS-CoV-2 NAA Rapid Test Not Detected (NotDetected)
[2021-08-01 17:09] LABS: Bilirubin Neg (Negative); Blood, Urine Negative (Negative); Clarity Clear (Clear); Glucose, Urine (Dipstick) Normal (Negative); Ketone, Urine Negative (Negative); Leukocyte Negative (Negative); Nitrite Negative (Negative); Protein, Urine (Dipstick) Negative (Neg-Trace); Urobilinogen Normal mg/dL (Less than 2)
[2021-08-01] MEDS ORDERED: Furosemide 40 MG/4 ML VIAL SLOW IVP SCH (20:00)
[2021-08-01 20:44] LABS: Troponin I 0.022 ng/mL (< 0.028)
[2021-08-01] MEDS: Montelukast Sodium 10 mg Tablet PO SCH (21:15)
[2021-08-01] MEDS ORDERED: Azithromycin 500 MG in Sodium Chloride 0.9% 250 ML 250 ML IVPB SCH (22:00)
[2021-08-02 02:06] VITALS: BMI 34.3
[2021-08-02 05:51] LABS: Anion Gap 12 mmol/L (10-20); BUN (Urea Nitrogen) 18 mg/dL (7.0-18.7); Calc. Creatinine Clearance 106 mL/min (70-130); Calcium 8.1 mg/dL (7.8-10.44); Carbon Dioxide 28 mmol/L (22-29); Chloride 103 mmol/L (98-107); Glucose 91 mg/dL (70-105); Potassium 3.4 mmol/L (3.5-5.1); Sodium 140 mmol/L (136-145)
[2021-08-02 06:01] LABS: Troponin I 0.022 ng/mL (< 0.028)
[2021-08-02 06:09] LABS: #Monocytes 0.5 10x3/uL (0.0-1.1); %Basophils 0.4 % (0.0-2.0); %Eosinophils 0.2 % (0.0-6.0); %Lymphocytes 9.4 % (18.0-47.0); %Monocytes 5.2 % (0.0-10.0); %Neutrophils 84.4 % (40.0-75.0); Hemoglobin 10.8 g/dL (12.0-15.5); Mean Corpuscular HGB CONC 31.9 g/dL (32.0-36.0); Mean Corpuscular Hemoglobin 32.7 pg (27.0-33.0); Mean Corpuscular Volume 102.7 fl (81.6-98.3); Mean Platelet Volume 11.5 fl (7.4-10.4); Platelet Count 112 10x3/uL (150-450); RBC Distribution Width 17.9 % (11.5-14.5); White Blood Cell (WBC) Count 9.5 10x3/uL (3.5-10.5)
[2021-08-02] MEDS ORDERED: Potassium Chloride 20 MEQ TAB PO SCH ×2 (06:45→08:00)
[2021-08-02] MEDS ORDERED: Spironolactone 25 MG TAB PO SCH (08:00)
[2021-08-02] MEDS: Mometasone/Formoterol 60 PUFF AER INH SCH ×2 (08:22→18:53)
[2021-08-02] MEDS ORDERED: Tadalafil [Cialis] 20 MG Tablet PO SCH (09:00)
[2021-08-02] MEDS ORDERED: AMBRISENTAN 10 MG PO SCH (09:00)
[2021-08-02] MEDS: Enoxaparin Sodium 40 MG/0.4 ML SYRINGE SC SCH (09:08)
[2021-08-02] MEDS: Ubidecarenone 50 MG CAP PO SCH ×2 (09:12→20:57)
[2021-08-02] MEDS: Cholecalciferol 1,000 UNITS (25 MCG) TAB PO SCH (09:13)
[2021-08-02] MEDS: Cyanocobalamin (Vitamin B-12) 1,000 MCG TAB PO SCH (09:13)
[2021-08-02] MEDS: Escitalopram Oxalate 10 mg Tablet PO SCH (09:13)
[2021-08-02] MEDS: Montelukast Sodium 10 mg Tablet PO SCH ×2 (09:13→20:57)
[2021-08-02] MEDS: Loratadine 10 MG TAB PO SCH (09:15)
[2021-08-02] MEDS: Furosemide 40 MG/4 ML VIAL SLOW IVP SCH ×2 (09:16→13:52)
[2021-08-02] MEDS: Spironolactone 25 MG TAB PO SCH ×2 (09:16→13:52)
[2021-08-02] MEDS: Topiramate 25 MG TAB PO SCH ×2 (09:26→20:57)
[2021-08-02] MEDS: cefTRIAXone\\ROCEPHIN 1 GM in Sodium Chloride 0.9% 100 ML IVPB SCH (19:18)
[2021-08-03] MEDS: Mometasone/Formoterol 60 PUFF AER INH SCH ×2 (08:20→18:45)
[2021-08-03] MEDS: Cholecalciferol 1,000 UNITS (25 MCG) TAB PO SCH (10:06)
[2021-08-03] MEDS: Cyanocobalamin (Vitamin B-12) 1,000 MCG TAB PO SCH (10:07)
[2021-08-03] MEDS: Ubidecarenone 50 MG CAP PO SCH ×2 (10:07→20:31)
[2021-08-03] MEDS: Escitalopram Oxalate 10 mg Tablet PO SCH (10:08)
[2021-08-03] MEDS: Spironolactone 25 MG TAB PO SCH (10:08)
[2021-08-03] MEDS: Montelukast Sodium 10 mg Tablet PO SCH ×2 (10:08→20:31)
[2021-08-03] MEDS: Enoxaparin Sodium 40 MG/0.4 ML SYRINGE SC SCH (10:09)
[2021-08-03] MEDS: Loratadine 10 MG TAB PO SCH (10:09)
[2021-08-03] MEDS: Furosemide 40 MG/4 ML VIAL SLOW IVP SCH (10:09)
[2021-08-03] MEDS: Topiramate 25 MG TAB PO SCH ×2 (10:29→20:31)
[2021-08-03 12:59] LABS: #Basophils 0.1 10x3/uL (0.0-0.2); #Eosinphils 0.1 10x3/uL (0.0-0.5); #Monocytes 0.4 10x3/uL (0.0-1.1); #Neutrophils 4.1 10x3/uL (1.5-8.4); %Basophils 0.9 % (0.0-2.0); %Eosinophils 2.2 % (0.0-6.0); %Lymphocytes 11.9 % (18.0-47.0); %Neutrophils 76.6 % (40.0-75.0); Hemoglobin 11.1 g/dL (12.0-15.5); Mean Corpuscular Hemoglobin 32.1 pg (27.0-33.0); Mean Corpuscular Volume 103.5 fl (81.6-98.3); Mean Platelet Volume 12.1 fl (7.4-10.4); Platelet Count 110 10x3/uL (150-450); RBC Distribution Width 17.9 % (11.5-14.5); Red Blood Cell (RBC) Count 3.46 10x6/uL (3.90-5.03); White Blood Cell (WBC) Count 5.4 10x3/uL (3.5-10.5)
[2021-08-03 13:20] LABS: Anion Gap 11 mmol/L (10-20); BUN (Urea Nitrogen) 18 mg/dL (7.0-18.7); Calc. Creatinine Clearance 122 mL/min (70-130); Calcium 8.3 mg/dL (7.8-10.44); Carbon Dioxide 27 mmol/L (22-29); Chloride 103 mmol/L (98-107); Glucose 99 mg/dL (70-105); Potassium 3.3 mmol/L (3.5-5.1); Sodium 138 mmol/L (136-145)
[2021-08-03] MEDS ORDERED: Furosemide 40 MG/4 ML VIAL SLOW IVP SCH (16:00)
[2021-08-03] MEDS ORDERED: Potassium Bicarbonate/Cit Ac 20 MEQ TAB PO SCH (16:00)
[2021-08-03] MEDS: cefTRIAXone\\ROCEPHIN 1 GM in Sodium Chloride 0.9% 100 ML IVPB SCH (17:39)
[2021-08-03] MEDS: Metoprolol Tartrate 25 MG TAB PO SCH (23:56)
[2021-08-04 04:02] LABS: #Basophils 0.1 10x3/uL (0.0-0.2); #Eosinphils 0.1 10x3/uL (0.0-0.5); #Monocytes 0.4 10x3/uL (0.0-1.1); #Neutrophils 5.1 10x3/uL (1.5-8.4); %Basophils 1.1 % (0.0-2.0); %Eosinophils 2.1 % (0.0-6.0); %Lymphocytes 11.9 % (18.0-47.0); %Monocytes 6.7 % (0.0-10.0); %Neutrophils 77.9 % (40.0-75.0); Mean Corpuscular HGB CONC 31.2 g/dL (32.0-36.0); Mean Corpuscular Hemoglobin 32.1 pg (27.0-33.0); Mean Corpuscular Volume 102.9 fl (81.6-98.3); Mean Platelet Volume 11.4 fl (7.4-10.4); Platelet Count 114 10x3/uL (150-450); RBC Distribution Width 17.7 % (11.5-14.5); Red Blood Cell (RBC) Count 3.43 10x6/uL (3.90-5.03); White Blood Cell (WBC) Count 6.6 10x3/uL (3.5-10.5)
[2021-08-04 04:16] LABS: Anion Gap 14 mmol/L (10-20); BUN (Urea Nitrogen) 19 mg/dL (7.0-18.7); Calc. Creatinine Clearance 123 mL/min (70-130); Carbon Dioxide 26 mmol/L (22-29); Chloride 101 mmol/L (98-107); Glucose 91 mg/dL (70-105); Potassium 3.7 mmol/L (3.5-5.1); Sodium 137 mmol/L (136-145)
[2021-08-04] MEDS: Mometasone/Formoterol 60 PUFF AER INH SCH ×2 (06:55→19:30)
[2021-08-04] MEDS: Cholecalciferol 1,000 UNITS (25 MCG) TAB PO SCH (10:26)
[2021-08-04] MEDS: Cyanocobalamin (Vitamin B-12) 1,000 MCG TAB PO SCH (10:27)
[2021-08-04] MEDS: Enoxaparin Sodium 40 MG/0.4 ML SYRINGE SC SCH (10:27)
[2021-08-04] MEDS: Furosemide 40 MG/4 ML VIAL SLOW IVP SCH (10:28)
[2021-08-04] MEDS: Loratadine 10 MG TAB PO SCH (10:28)
[2021-08-04] MEDS: Escitalopram Oxalate 10 mg Tablet PO SCH (10:28)
[2021-08-04] MEDS: Metoprolol Tartrate 25 MG TAB PO SCH ×2 (10:28→20:25)
[2021-08-04] MEDS: Topiramate 25 MG TAB PO SCH ×2 (10:29→20:25)
[2021-08-04] MEDS: Ubidecarenone 50 MG CAP PO SCH ×2 (10:29→20:25)
[2021-08-04] MEDS: cefTRIAXone\\ROCEPHIN 1 GM in Sodium Chloride 0.9% 100 ML IVPB SCH (18:52)
[2021-08-04] MEDS ORDERED: Furosemide 20 MG TAB PO SCH (20:00)
[2021-08-04] MEDS: Montelukast Sodium 10 mg Tablet PO SCH (20:37)
[2021-08-05 05:02] LABS: Platelet Count 124 10x3/uL (150-450)
[2021-08-05 05:03] LABS: #Basophils 0.1 10x3/uL (0.0-0.2); #Eosinphils 0.1 10x3/uL (0.0-0.5); #Monocytes 0.4 10x3/uL (0.0-1.1); #Neutrophils 3.9 10x3/uL (1.5-8.4); %Basophils 1.1 % (0.0-2.0); %Eosinophils 1.9 % (0.0-6.0); %Monocytes 7.6 % (0.0-10.0); Hemoglobin 11.3 g/dL (12.0-15.5); Mean Corpuscular HGB CONC 31.7 g/dL (32.0-36.0); Mean Corpuscular Hemoglobin 32.3 pg (27.0-33.0); Mean Platelet Volume 11.7 fl (7.4-10.4); RBC Distribution Width 17.7 % (11.5-14.5); White Blood Cell (WBC) Count 5.2 10x3/uL (3.5-10.5)
[2021-08-05 06:01] LABS: Anion Gap 13 mmol/L (10-20); BUN (Urea Nitrogen) 20 mg/dL (7.0-18.7); Calc. Creatinine Clearance 117 mL/min (70-130); Calcium 8.3 mg/dL (7.8-10.44); Carbon Dioxide 26 mmol/L (22-29); Chloride 103 mmol/L (98-107); Glucose 88 mg/dL (70-105); Potassium 3.6 mmol/L (3.5-5.1); Sodium 138 mmol/L (136-145)
[2021-08-05] MEDS: Mometasone/Formoterol 60 PUFF AER INH SCH (07:01)
[2021-08-05 08:43] VITALS: TEMP 97.7
[2021-08-05] MEDS: Ubidecarenone 50 MG CAP PO SCH (10:01)
[2021-08-05] MEDS: Metoprolol Tartrate 25 MG TAB PO SCH (10:02)
[2021-08-05] MEDS: Cholecalciferol 1,000 UNITS (25 MCG) TAB PO SCH (10:02)
[2021-08-05] MEDS: Escitalopram Oxalate 10 mg Tablet PO SCH (10:02)
[2021-08-05] MEDS: Cyanocobalamin (Vitamin B-12) 1,000 MCG TAB PO SCH (10:03)
[2021-08-05] MEDS: Topiramate 25 MG TAB PO SCH (10:03)
[2021-08-05] MEDS: Loratadine 10 MG TAB PO SCH (10:03)
[2021-08-05] MEDS: Enoxaparin Sodium 40 MG/0.4 ML SYRINGE SC SCH (10:04)
[2021-08-05 10:35] VITALS: BP 95/57
== END 2021-08-05 10:43 | disposition home or self-care (01) | DRG 291 ==
LOC: CSHERS 15:44 → INTOOBSV 21:44 → OBSVTOIN 21:44 → UNDOADMOB 21:44 → CSHTELE 21:44 → OBSVTOIN 08-03 21:59 → CSHTELE 08-03 21:59
PROVIDERS: ADMIT Family Medicine; ATTEND Hospitalist
DX: I11.0 Hypertensive heart disease with heart failure (principal); I50.33 Acute on chronic diastolic (congestive) heart failure; J96.21 Acute and chronic respiratory failure with hypoxia; Z20.822 Contact with and (suspected) exposure to COVID-19; G47.33 Obstructive sleep apnea (adult) (pediatric); J20.9 Acute bronchitis, unspecified; E66.01 Morbid (severe) obesity due to excess calories; I27.21 Secondary pulmonary arterial hypertension; J45.909 Unspecified asthma, uncomplicated; G43.909 Migraine, unspecified, not intractable, without status migrainosus; D75.89 Other specified diseases of blood and blood-forming organs; Q24.9 Congenital malformation of heart, unspecified; Q90.9 Down syndrome, unspecified; Z99.81 Dependence on supplemental oxygen; Z88.8 Allergy status to other drugs, medicaments and biological substances; Z79.899 Other long term (current) drug therapy; Z90.89 Acquired absence of other organs; Z98.890 Other specified postprocedural states; Z68.34 Body mass index [BMI] 34.0-34.9, adult
CPT/HCPCS: 0240U; 36415; 51701; 71045; 80048; 80053; 81003; 82607; 82746; 82805; 83735; 83880; 84443; 84484; 85025; 93005; 93010; 93306; 94664; 94760; 96365; 96366; 96372; 96375; 96376; G0378; J0456; J0696; J1650; J1940; J3490; J7050; J7620

== ENCOUNTER 2021-08-15 22:02 | Emergency (ER) | payer MEDICARE, OTHER ==
[2021-08-15] MEDS ORDERED: Furosemide 40 MG/4 ML VIAL ONE (22:24)
[2021-08-15 22:47] LABS: Hemoglobin 11.4 g/dL (12.0-15.5); Mean Corpuscular HGB CONC 31.6 g/dL (32.0-36.0); Mean Corpuscular Hemoglobin 31.7 pg (27.0-33.0); Mean Corpuscular Volume 100.3 fl (81.6-98.3); Mean Platelet Volume 11.5 fl (7.4-10.4); Platelet Count 104 10x3/uL (150-450); RBC Distribution Width 17.7 % (11.5-14.5); White Blood Cell (WBC) Count 2.9 10x3/uL (3.5-10.5)
[2021-08-15 22:52] LABS: ALT (SGPT) 12 U/L (8-55); AST (SGOT) 38 U/L (5-34); Albumin 3.2 g/dL (3.5-5.0); Alkaline Phosphatase 112 U/L (40-110); Anion Gap 13 mmol/L (10-20); BUN (Urea Nitrogen) 22 mg/dL (7.0-18.7); Bilirubin, Total 1.1 mg/dL (0.2-1.2); Calc. Creatinine Clearance 0 mL/min (70-130); Calcium 7.3 mg/dL (7.8-10.44); Carbon Dioxide 28 mmol/L (22-29); Chloride 97 mmol/L (98-107); Globulin 4.1 g/dL (2.4-3.5); Glucose 111 mg/dL (70-105); Potassium 3.5 mmol/L (3.5-5.1); Protein, Total 7.3 g/dL (6.0-8.3); Sodium 134 mmol/L (136-145)
[2021-08-15 22:57] LABS: MDiff Complete? YES
[2021-08-15 22:58] LABS: Actual Bicarbonate (HCO3v) 24 mEq/L (22-28); Base Excess 1.4 mEq/L (-2.0 to +3.0); Calcium, Ionized (venous) 0.98 mmol/L (1.16-1.32); Chloride (VBG) 98 mmol/L (98-106); Hemoglobin (Hb) 12.3 g/dL (11.7-15.5); Potassium (VBG) 3.49 mmol/L (3.70-5.30); Puncture Site Other Site; RapidComm Collect By CSUC.CNC; Sodium 133.8 mmol/L (133-146); pH (venous) 7.48 (7.32-7.43)
[2021-08-15 23:13] LABS: SARS-CoV-2 NAA Rapid Test DETECTED (NotDetected)
[2021-08-15 23:23] LABS: Band 4 % (5-11); Lymphocytes 21 % (21-51); Metamyelocyte 2 % (0-0); Monocytes 9 % (0-10); Neutrophil 64 % (42-75); Nucleated RBC 5 % (0)
[2021-08-15 23:24] LABS: Polychromasia SLIGHT = 2-3 cells (100X) (0-2/hpf)
[2021-08-15 23:25] LABS: Platelet Morphology Comment Appears Decreased
[2021-08-16] MEDS ORDERED: Dexamethasone 10 MG/ML VIAL ONE (01:20)
[2021-08-16] MEDS ORDERED: Enoxaparin Sodium 40 MG/0.4 ML SYRINGE ONE (01:20)
== END 2021-08-16 01:53 | disposition short-term general hospital (02) ==
LOC: CSHERS 22:02
DX: U07.1 COVID-19 (principal); I11.0 Hypertensive heart disease with heart failure; I50.9 Heart failure, unspecified; J45.909 Unspecified asthma, uncomplicated; G43.909 Migraine, unspecified, not intractable, without status migrainosus; G47.30 Sleep apnea, unspecified
CPT/HCPCS: 0240U; 71045; 80053; 82805; 83880; 84484; 85025; 93005; 94660; 94760; 96372; 96374; 96375; 99285; J1100; J1650; J1940

== ENCOUNTER 2021-10-04 13:39 | Outpatient (CLI) | payer MEDICARE, OTHER | END 2021-10-04 13:40 | disposition home or self-care (01) | LOC: CSHULT 13:39 | PROVIDERS: ATTEND Nurse Practitioner Family | DX: R60.0 Localized edema (principal) ==

== ENCOUNTER 2022-03-20 16:18 | Emergency (ER) | payer MEDICARE, OTHER ==
[2022-03-20] MEDS ORDERED: Furosemide 40 MG/4 ML VIAL ONE (16:45)
[2022-03-20 16:50] LABS: #Basophils 0.1 10x3/uL (0.0-0.2); #Eosinphils 0.1 10x3/uL (0.0-0.5); #Monocytes 0.5 10x3/uL (0.0-1.1); #Neutrophils 5.2 10x3/uL (1.5-8.4); %Basophils 0.9 % (0.0-2.0); %Eosinophils 1.4 % (0.0-6.0); %Lymphocytes 8.4 % (18.0-47.0); %Monocytes 7.6 % (0.0-10.0); %Neutrophils 81.4 % (40.0-75.0); Hemoglobin 12.1 g/dL (12.0-15.5); Mean Corpuscular HGB CONC 31.8 g/dL (32.0-36.0); Mean Corpuscular Hemoglobin 31.8 pg (27.0-33.0); Mean Platelet Volume 11.6 fl (7.4-10.4); Platelet Count 142 10x3/uL (150-450); RBC Distribution Width 16.9 % (11.5-14.5); Red Blood Cell (RBC) Count 3.81 10x6/uL (3.90-5.03); White Blood Cell (WBC) Count 6.4 10x3/uL (3.5-10.5)
[2022-03-20 17:06] LABS: ALT (SGPT) 11 U/L (8-55); AST (SGOT) 25 U/L (5-34); Albumin 3.6 g/dL (3.5-5.0); Alkaline Phosphatase 118 U/L (40-110); Anion Gap 14 mmol/L (10-20); BUN (Urea Nitrogen) 17 mg/dL (7.0-18.7); Bilirubin, Total 2.1 mg/dL (0.2-1.2); Calc. Creatinine Clearance 0 mL/min (70-130); Calcium 8.6 mg/dL (7.8-10.44); Carbon Dioxide 28 mmol/L (22-29); Chloride 100 mmol/L (98-107); Estimated GFR 65; Globulin 4.4 g/dL (2.4-3.5); Glucose 106 mg/dL (70-105); Potassium 3.7 mmol/L (3.5-5.1); Sodium 138 mmol/L (136-145)
== END 2022-03-20 19:29 | disposition home or self-care (01) ==
LOC: CSHERS 16:18
DX: I11.0 Hypertensive heart disease with heart failure (principal); I50.9 Heart failure, unspecified; E87.70 Fluid overload, unspecified; G47.33 Obstructive sleep apnea (adult) (pediatric); Z79.899 Other long term (current) drug therapy
CPT/HCPCS: 71045; 80053; 83880; 84484; 85025; 93005; 96374; J1940

== ENCOUNTER 2022-03-21 14:52 | Inpatient (IN) | payer MEDICARE, OTHER ==
[~2022-03-21 14:52] MED LIST: Iopamidol 370 76% 100 ML VIAL ONE
[2022-03-21 16:01] LABS: #Eosinphils 0.1 10x3/uL (0.0-0.5); #Monocytes 0.5 10x3/uL (0.0-1.1); %Basophils 0.5 % (0.0-2.0); %Eosinophils 1.2 % (0.0-6.0); %Lymphocytes 5.9 % (18.0-47.0); %Monocytes 5.8 % (0.0-10.0); %Neutrophils 86.1 % (40.0-75.0); Hemoglobin 11.9 g/dL (12.0-15.5); Mean Corpuscular HGB CONC 31.6 g/dL (32.0-36.0); Mean Corpuscular Hemoglobin 31.4 pg (27.0-33.0); Mean Corpuscular Volume 99.5 fl (81.6-98.3); Mean Platelet Volume 11.7 fl (7.4-10.4); Platelet Count 118 10x3/uL (150-450); RBC Distribution Width 17.1 % (11.5-14.5); Red Blood Cell (RBC) Count 3.79 10x6/uL (3.90-5.03); White Blood Cell (WBC) Count 8.1 10x3/uL (3.5-10.5)
[2022-03-21 16:08] LABS: ALT (SGPT) 11 U/L (8-55); AST (SGOT) 24 U/L (5-34); Albumin 3.7 g/dL (3.5-5.0); Alkaline Phosphatase 109 U/L (40-110); Anion Gap 14 mmol/L (10-20); BUN (Urea Nitrogen) 16 mg/dL (7.0-18.7); Bilirubin, Total 1.9 mg/dL (0.2-1.2); Calc. Creatinine Clearance 0 mL/min (70-130); Calcium 8.9 mg/dL (7.8-10.44); Carbon Dioxide 26 mmol/L (22-29); Chloride 100 mmol/L (98-107); Estimated GFR 68; Globulin 4.6 g/dL (2.4-3.5); Glucose 89 mg/dL (70-105); Potassium 3.8 mmol/L (3.5-5.1); Protein, Total 8.3 g/dL (6.0-8.3); Sodium 136 mmol/L (136-145)
[2022-03-21] MEDS ORDERED: Acetaminophen 500 MG TAB ONE (16:08)
[2022-03-21 16:09] LABS: D-Dimer Test 3.82 mg/L FEU (0.19-0.50); INR-International Normal Ratio 1.2; PTT 21.9 sec (22.0-33.0); Prothrombin Time 13.1 sec (9.5-12.1)
[2022-03-21 18:03] LABS: Bilirubin Neg (Negative); Blood, Urine 25 (Negative); Clarity Cloudy (Clear); Glucose, Urine (Dipstick) Normal (Negative); Ketone, Urine Negative (Negative); Leukocyte Negative (Negative); Nitrite Negative (Negative); Protein, Urine (Dipstick) Negative (Neg-Trace); Urobilinogen Normal mg/dL (Less than 2)
[2022-03-21 18:14] LABS: Bacteria/HPF 3+ HPF (None Seen); Mucous/LPF Rare LPF (<2+); RBC/HPF 0-3 HPF (0-3); Squamous Epithelial 0-3 HPF (0-3); WBC/HPF 0-3 HPF (0-3)
[2022-03-21 18:53] LABS: SARS-CoV-2 NAA Rapid Test Not Detected (NotDetected)
[2022-03-21] MEDS ORDERED: Azithromycin 500 MG VIAL ONE (19:01)
[2022-03-21] MEDS ORDERED: cefTRIAXone\\ROCEPHIN 1 GM VIAL ONE (19:01)
[2022-03-21] MEDS ORDERED: Acetaminophen 325 MG TAB PO PRN (19:55)
[2022-03-21] MEDS ORDERED: Guaifenesin DM 100-10/5 ML UDCUP PO PRN (19:55)
[2022-03-21] MEDS ORDERED: Ondansetron PF 4 MG/2 ML Vial IVP PRN (19:55)
[2022-03-21] MEDS ORDERED: Calcium Carbonate 500 MG ChewTAB PO PRN (19:55)
[2022-03-21 20:26] LABS: Actual Bicarbonate (HCO3v) 26 mEq/L (22-28); Base Excess 1.6 mEq/L (-2.0 to +3.0); Calcium, Ionized (venous) 1.02 mmol/L (1.16-1.32); Chloride (VBG) 100 mmol/L (98-106); Hemoglobin (Hb) 11.6 g/dL (11.7-15.5); Potassium (VBG) 3.81 mmol/L (3.70-5.30); Puncture Site Other Site; RapidComm Collect By LAB.CB1; Sodium 130.7 mmol/L (133-146); pH (venous) 7.44 (7.32-7.43)
[2022-03-21] MEDS ORDERED: methylPREDNISolone Sod Succ/PF 125 MG/2 ML VIAL IVP SCH (20:30)
[2022-03-21 20:37] LABS: Troponin I Less than 0.010 ng/mL (< 0.028)
[2022-03-21 21:35] VITALS: BMI 49.1
[2022-03-21] MEDS ORDERED: Vancomycin HCl 500 MG in Sodium Chloride 0.9% 100 ML IVPB SCH (22:00)
[2022-03-21] MEDS: Topiramate 25 MG TAB PO SCH (22:03)
[2022-03-21] MEDS: Montelukast Sodium 10 mg Tablet PO SCH (22:04)
[2022-03-21] MEDS: Famotidine/PF 20 mg/2ml Vial SLOW IVP SCH (22:04)
[2022-03-21] MEDS: Ubidecarenone 50 MG CAP PO SCH (22:04)
[2022-03-22 03:36] LABS: Strep pneumo Urine Ag NEGATIVE (NEGATIVE)
[2022-03-22 05:00] LABS: #Monocytes 0.1 10x3/uL (0.0-1.1); #Neutrophils 6.1 10x3/uL (1.5-8.4); %Basophils 0.5 % (0.0-2.0); %Eosinophils 0.2 % (0.0-6.0); %Lymphocytes 4.5 % (18.0-47.0); %Monocytes 1.8 % (0.0-10.0); %Neutrophils 91.9 % (40.0-75.0); Hemoglobin 11.1 g/dL (12.0-15.5); Mean Corpuscular HGB CONC 31.9 g/dL (32.0-36.0); Mean Corpuscular Hemoglobin 31.5 pg (27.0-33.0); Mean Corpuscular Volume 98.9 fl (81.6-98.3); Platelet Count 128 10x3/uL (150-450); RBC Distribution Width 17.2 % (11.5-14.5); Red Blood Cell (RBC) Count 3.52 10x6/uL (3.90-5.03); White Blood Cell (WBC) Count 6.7 10x3/uL (3.5-10.5)
[2022-03-22 05:21] LABS: Anion Gap 13 mmol/L (10-20); BUN (Urea Nitrogen) 17 mg/dL (7.0-18.7); Calc. Creatinine Clearance 142 mL/min (70-130); Calcium 8.1 mg/dL (7.8-10.44); Carbon Dioxide 27 mmol/L (22-29); Chloride 100 mmol/L (98-107); Estimated GFR 72; Glucose 103 mg/dL (70-105); Potassium 3.9 mmol/L (3.5-5.1); Sodium 136 mmol/L (136-145)
[2022-03-22 05:25] LABS: Legionella Urinary Ag Negative (Negative)
[2022-03-22] MEDS: Mometasone/Formoterol 200/5 60 PUFF INH SCH ×2 (06:30→18:30)
[2022-03-22] MEDS ORDERED: Vancomycin 1 GM in Premix Bag 1 BAG IVPB SCH (07:00)
[2022-03-22] MEDS: Escitalopram Oxalate 10 mg Tablet PO SCH (08:17)
[2022-03-22] MEDS: Cholecalciferol 1,000 UNITS (25 MCG) TAB PO SCH (08:17)
[2022-03-22] MEDS: Topiramate 25 MG TAB PO SCH ×2 (08:17→20:39)
[2022-03-22] MEDS: Magnesium Oxide 250 MG TAB PO SCH (08:17)
[2022-03-22] MEDS: Ubidecarenone 50 MG CAP PO SCH ×2 (08:17→20:39)
[2022-03-22] MEDS: Ascorbic Acid 500 mg Chewable Tablet PO SCH (08:17)
[2022-03-22] MEDS: methylPREDNISolone Sod Succ 40 MG VIAL IVP SCH (08:17)
[2022-03-22] MEDS: Cyanocobalamin (Vitamin B-12) 1,000 MCG TAB PO SCH (08:17)
[2022-03-22] MEDS: Famotidine/PF 20 mg/2ml Vial SLOW IVP SCH ×2 (08:17→20:39)
[2022-03-22] MEDS: Enoxaparin Sodium 40 MG/0.4 ML SYRINGE SC SCH (08:26)
[2022-03-22] MEDS ORDERED: Furosemide 40 MG/4 ML VIAL SLOW IVP SCH (09:00)
[2022-03-22] MEDS: Furosemide 40 MG/4 ML VIAL SLOW IVP SCH (15:30)
[2022-03-22] MEDS ORDERED: SODIUM CHLORIDE 0.9% IVPB SCH (20:00)
[2022-03-22] MEDS ORDERED: VANCOMYCIN IVPB SCH (20:00)
[2022-03-22] MEDS: Montelukast Sodium 10 mg Tablet PO SCH (20:39)
[2022-03-23 04:05] LABS: #Monocytes 0.4 10x3/uL (0.0-1.1); #Neutrophils 4.6 10x3/uL (1.5-8.4); %Basophils 0.2 % (0.0-2.0); %Lymphocytes 6.5 % (18.0-47.0); %Monocytes 6.9 % (0.0-10.0); %Neutrophils 84.9 % (40.0-75.0); Hemoglobin 10.5 g/dL (12.0-15.5); Mean Corpuscular HGB CONC 31.9 g/dL (32.0-36.0); Mean Corpuscular Hemoglobin 31.4 pg (27.0-33.0); Mean Corpuscular Volume 98.5 fl (81.6-98.3); Mean Platelet Volume 10.9 fl (7.4-10.4); Platelet Count 137 10x3/uL (150-450); RBC Distribution Width 17.1 % (11.5-14.5); Red Blood Cell (RBC) Count 3.34 10x6/uL (3.90-5.03); White Blood Cell (WBC) Count 5.4 10x3/uL (3.5-10.5)
[2022-03-23 04:19] LABS: Anion Gap 14 mmol/L (10-20); BUN (Urea Nitrogen) 26 mg/dL (7.0-18.7); Calc. Creatinine Clearance 113 mL/min (70-130); Carbon Dioxide 26 mmol/L (22-29); Chloride 101 mmol/L (98-107); Estimated GFR 54; Glucose 134 mg/dL (70-105); Potassium 4.2 mmol/L (3.5-5.1); Sodium 137 mmol/L (136-145)
[2022-03-23] MEDS: Furosemide 40 MG/4 ML VIAL SLOW IVP SCH ×2 (05:25→14:23)
[2022-03-23] MEDS: Mometasone/Formoterol 200/5 60 PUFF INH SCH (07:52)
[2022-03-23] MEDS: Famotidine/PF 20 mg/2ml Vial SLOW IVP SCH ×2 (09:18→20:57)
[2022-03-23] MEDS: Topiramate 25 MG TAB PO SCH ×2 (09:18→20:53)
[2022-03-23] MEDS: Ascorbic Acid 500 mg Chewable Tablet PO SCH (09:19)
[2022-03-23] MEDS: Escitalopram Oxalate 10 mg Tablet PO SCH (09:19)
[2022-03-23] MEDS: Ubidecarenone 50 MG CAP PO SCH ×2 (09:19→20:53)
[2022-03-23] MEDS: Cyanocobalamin (Vitamin B-12) 1,000 MCG TAB PO SCH (09:19)
[2022-03-23] MEDS: Magnesium Oxide 250 MG TAB PO SCH (09:19)
[2022-03-23] MEDS: Cholecalciferol 1,000 UNITS (25 MCG) TAB PO SCH (09:19)
[2022-03-23] MEDS: Enoxaparin Sodium 40 MG/0.4 ML SYRINGE SC SCH (09:20)
[2022-03-23] MEDS: methylPREDNISolone Sod Succ 40 MG VIAL IVP SCH (09:20)
[2022-03-23] MEDS: Montelukast Sodium 10 mg Tablet PO SCH ×3 (20:53→20:59)
[2022-03-24 05:19] LABS: #Monocytes 0.4 10x3/uL (0.0-1.1); #Neutrophils 4.4 10x3/uL (1.5-8.4); %Basophils 0.2 % (0.0-2.0); %Lymphocytes 7.8 % (18.0-47.0); %Monocytes 6.9 % (0.0-10.0); Hemoglobin 10.5 g/dL (12.0-15.5); Mean Corpuscular HGB CONC 31.8 g/dL (32.0-36.0); Mean Corpuscular Volume 100.6 fl (81.6-98.3); Mean Platelet Volume 11.3 fl (7.4-10.4); Platelet Count 138 10x3/uL (150-450); RBC Distribution Width 17.2 % (11.5-14.5); Red Blood Cell (RBC) Count 3.28 10x6/uL (3.90-5.03); White Blood Cell (WBC) Count 5.2 10x3/uL (3.5-10.5)
[2022-03-24 05:30] LABS: Anion Gap 12 mmol/L (10-20); BUN (Urea Nitrogen) 29 mg/dL (7.0-18.7); Calc. Creatinine Clearance 135 mL/min (70-130); Calcium 8.1 mg/dL (7.8-10.44); Carbon Dioxide 28 mmol/L (22-29); Chloride 101 mmol/L (98-107); Estimated GFR 66; Glucose 115 mg/dL (70-105); Potassium 4.2 mmol/L (3.5-5.1); Sodium 137 mmol/L (136-145)
[2022-03-24] MEDS: Furosemide 40 MG/4 ML VIAL SLOW IVP SCH ×2 (06:13→14:30)
[2022-03-24] MEDS: Mometasone/Formoterol 200/5 60 PUFF INH SCH ×2 (07:34→10:14)
[2022-03-24] MEDS ORDERED: AMBRISENTAN 10 MG PO SCH (09:00)
[2022-03-24] MEDS ORDERED: TADALAFIL 20 MG PO SCH (09:00)
[2022-03-24] MEDS: Cholecalciferol 1,000 UNITS (25 MCG) TAB PO SCH (10:18)
[2022-03-24] MEDS: Cyanocobalamin (Vitamin B-12) 1,000 MCG TAB PO SCH (10:19)
[2022-03-24] MEDS: Ascorbic Acid 500 mg Chewable Tablet PO SCH (10:19)
[2022-03-24] MEDS: Magnesium Oxide 250 MG TAB PO SCH (10:19)
[2022-03-24] MEDS: Topiramate 25 MG TAB PO SCH (10:19)
[2022-03-24] MEDS: Ubidecarenone 50 MG CAP PO SCH (10:20)
[2022-03-24] MEDS: Escitalopram Oxalate 10 mg Tablet PO SCH (10:20)
[2022-03-24] MEDS: Famotidine/PF 20 mg/2ml Vial SLOW IVP SCH (10:20)
[2022-03-24] MEDS: methylPREDNISolone Sod Succ 40 MG VIAL IVP SCH (10:20)
[2022-03-24] MEDS: Enoxaparin Sodium 40 MG/0.4 ML SYRINGE SC SCH (10:20)
[2022-03-24 17:18] VITALS: BP 125/69; TEMP 97.3
== END 2022-03-24 16:00 | disposition home or self-care (01) | DRG 291 ==
LOC: CSHERS 14:52 → CSHICU 20:16 → CSHTELE 03-23 13:51
PROVIDERS: ADMIT Student in an Organized Health Care Education/Training Program; ATTEND Internal Medicine
PROC: 5A09457 Assistance with Respiratory Ventilation, 24-96 Consecutive Hours, Continuous Positive Airway Pressure (ICD-10-PCS; principal; 2022-03-21)
DX: I11.0 Hypertensive heart disease with heart failure (principal); J96.21 Acute and chronic respiratory failure with hypoxia; I50.33 Acute on chronic diastolic (congestive) heart failure; J84.9 Interstitial pulmonary disease, unspecified; J45.901 Unspecified asthma with (acute) exacerbation; Z68.43 Body mass index [BMI] 50.0-59.9, adult; Z20.822 Contact with and (suspected) exposure to COVID-19; I44.0 Atrioventricular block, first degree; G47.33 Obstructive sleep apnea (adult) (pediatric); D53.9 Nutritional anemia, unspecified; D69.6 Thrombocytopenia, unspecified; E66.01 Morbid (severe) obesity due to excess calories; Z66 Do not resuscitate; I27.21 Secondary pulmonary arterial hypertension; Z88.8 Allergy status to other drugs, medicaments and biological substances; Z79.899 Other long term (current) drug therapy; Q90.9 Down syndrome, unspecified; Z90.49 Acquired absence of other specified parts of digestive tract; Z98.890 Other specified postprocedural states
CPT/HCPCS: 36415; 71045; 71275; 80048; 80053; 81003; 81015; 82805; 83605; 83880; 84145; 84484; 85025; 85379; 85610; 85730; 87040; 87086; 87449; 87899; 93005; 94640; 94660; 94664; 94760; 96374; J0456; J0696; J1650; J1940; J1956; J2920; J2930; J3370; J3490; J7620; Q9967; S0028

== ENCOUNTER 2022-06-13 13:01 | Inpatient (IN) | payer MEDICARE, OTHER ==
[2022-06-13] MEDS ORDERED: methylPREDNISolone Sod Succ/PF 125 MG/2 ML VIAL ONE (13:27)
[2022-06-13] MEDS ORDERED: cefTRIAXone\\ROCEPHIN 2 GM VIAL ONE (13:28)
[2022-06-13] MEDS ORDERED: Magnesium 2 GM/50 ML BAG (IN WATER) ONE (13:28)
[2022-06-13] MEDS ORDERED: Azithromycin 500 MG VIAL ONE (13:28)
[2022-06-13 13:46] LABS: #Monocytes 0.6 10x3/uL (0.0-1.1); %Basophils 0.4 % (0.0-2.0); %Eosinophils 0.3 % (0.0-6.0); %Monocytes 6.1 % (0.0-10.0); %Neutrophils 86.8 % (40.0-75.0); Hemoglobin 11.9 g/dL (12.0-15.5); Mean Corpuscular HGB CONC 31.4 g/dL (32.0-36.0); Mean Corpuscular Hemoglobin 31.2 pg (27.0-33.0); Mean Corpuscular Volume 99.2 fl (81.6-98.3); Mean Platelet Volume 10.9 fl (7.4-10.4); Platelet Count 109 10x3/uL (150-450); RBC Distribution Width 19.8 % (11.5-14.5); Red Blood Cell (RBC) Count 3.82 10x6/uL (3.90-5.03); White Blood Cell (WBC) Count 9.2 10x3/uL (3.5-10.5)
[2022-06-13 14:02] LABS: ALT (SGPT) 9 U/L (8-55); AST (SGOT) 30 U/L (5-34); Albumin 3.5 g/dL (3.5-5.0); Alkaline Phosphatase 118 U/L (40-110); Anion Gap 17 mmol/L (10-20); BUN (Urea Nitrogen) 25 mg/dL (7.0-18.7); Bilirubin, Total 2.3 mg/dL (0.2-1.2); Calc. Creatinine Clearance 0 mL/min (70-130); Carbon Dioxide 25 mmol/L (22-29); Chloride 103 mmol/L (98-107); Estimated GFR 58; Globulin 3.8 g/dL (2.4-3.5); Glucose 91 mg/dL (70-105); Magnesium 1.8 mg/dL (1.6-2.6); Potassium 3.7 mmol/L (3.5-5.1); Protein, Total 7.3 g/dL (6.0-8.3); Sodium 141 mmol/L (136-145)
[2022-06-13 14:18] LABS: CKMB 1.4 ng/mL (0-6.6)
[2022-06-13] MEDS ORDERED: Furosemide 40 MG/4 ML VIAL ONE (14:51)
[2022-06-13] MEDS ORDERED: Aspirin 325 MG TAB ONE (14:52)
[2022-06-13 15:24] LABS: Bilirubin Neg (Negative); Blood, Urine Negative (Negative); Clarity Sl. Cloudy (Clear); Glucose, Urine (Dipstick) Normal (Negative); Ketone, Urine Negative (Negative); Leukocyte 25 (Negative); Nitrite Negative (Negative); Protein, Urine (Dipstick) 30 mg/dl (Neg-Trace); Specific Gravity, Urine 1.025 (1.005-1.030)
[2022-06-13 15:32] LABS: SARS-CoV-2 NAA Rapid Test Not Detected (NotDetected)
[2022-06-13 16:05] LABS: Bacteria/HPF Rare-Few HPF (None Seen); Mucous/LPF 1+ LPF (<2+); RBC/HPF 0-3 HPF (0-3)
[2022-06-13] MEDS ORDERED: Acetaminophen 325 MG TAB PO PRN (16:51)
[2022-06-13] MEDS ORDERED: Furosemide 40 MG/4 ML VIAL SLOW IVP SCH ×2 (17:00→22:00)
[2022-06-13] MEDS ORDERED: Albuterol Sulfate 2.5 mg/3 ml Neb NEB PRN (17:02)
[2022-06-13] MEDS ORDERED: NOREPINEPHRINE 8 MG/250 ML-D5W 250 ML IVPB SCH (19:00)
[2022-06-13 19:03] LABS: Troponin I 0.192 ng/mL (< 0.028)
[2022-06-13] MEDS ORDERED: Piperacillin/Tazobactam 3.375 GM in Sodium Chloride 0.9% 100 ML IVPB SCH (20:00)
[2022-06-13] MEDS ORDERED: Montelukast Sodium 10 mg Tablet PO SCH (21:00)
[2022-06-13] MEDS ORDERED: Topiramate 25 MG TAB PO SCH (21:00)
[2022-06-13 21:55] LABS: Troponin I 0.184 ng/mL (< 0.028)
[2022-06-13 22:15] LABS: ALV-art Gradient 266.175 mmHg (0-20); Actual Bicarbonate (HCO3a) 28.1 mEq/L (22-28); Base Excess (BEa) 1.3 mEq/L (-2.0 to +3.0); CO2 Tension 54.5 mmHg (35.0-45.0); Calcium, Ionized (arterial) 1.16 mmol/L (1.12-1.30); Critical Notified By: CP.PH; Hemoglobin (Hb) 12.2 g/dL (12.0-16.0); O2 Tension (PaO2), arterial 93.5 mmHg (80.0-100.0); Potassium - ABG Lab 3.7 mmol/L (3.70-5.30); Puncture Site LBA; RapidComm Collect By CP.PH; pH, Arterial 7.33 (7.35-7.45)
[2022-06-14] MEDS: Piperacillin/Tazobactam 3.375 GM in Sodium Chloride 0.9% 100 ML IVPB SCH ×4 (00:13→22:52)
[2022-06-14 04:25] LABS: Hemoglobin 11.2 g/dL (12.0-15.5); Mean Corpuscular HGB CONC 31.9 g/dL (32.0-36.0); Mean Corpuscular Hemoglobin 30.9 pg (27.0-33.0); Mean Platelet Volume 11.3 fl (7.4-10.4); Platelet Count 96 10x3/uL (150-450); RBC Distribution Width 19.6 % (11.5-14.5); Red Blood Cell (RBC) Count 3.62 10x6/uL (3.90-5.03); White Blood Cell (WBC) Count 14.6 10x3/uL (3.5-10.5)
[2022-06-14 04:28] LABS: Anion Gap 14 mmol/L (10-20); BUN (Urea Nitrogen) 29 mg/dL (7.0-18.7); Calc. Creatinine Clearance 97 mL/min (70-130); Calcium 8.6 mg/dL (7.8-10.44); Carbon Dioxide 27 mmol/L (22-29); Chloride 104 mmol/L (98-107); Estimated GFR 54; Glucose 140 mg/dL (70-105); Potassium 3.9 mmol/L (3.5-5.1); Sodium 141 mmol/L (136-145)
[2022-06-14 04:48] LABS: MDiff Complete? YES
[2022-06-14] MEDS: Furosemide 40 MG/4 ML VIAL SLOW IVP SCH ×2 (05:35→15:38)
[2022-06-14 05:51] LABS: Band 25 % (5-11); Lymphocytes 1 % (21-51); Monocytes 2 % (0-10); Neutrophil 72 % (42-75)
[2022-06-14 05:56] LABS: Hypochromia SLIGHT = 6-15 cells (100X) (0-5/hpf); Platelet Morphology Comment Appears Decreased
[2022-06-14] MEDS ORDERED: Spironolactone 25 MG TAB PO SCH (08:00)
[2022-06-14] MEDS: Spironolactone 25 MG TAB PO SCH (08:29)
[2022-06-14] MEDS: Escitalopram Oxalate 10 mg Tablet PO SCH (08:29)
[2022-06-14] MEDS: Enoxaparin Sodium 40 MG/0.4 ML SYRINGE SC SCH (08:29)
[2022-06-14] MEDS: Montelukast Sodium 10 mg Tablet PO SCH (08:29)
[2022-06-14] MEDS ORDERED: TADALAFIL 20 MG PO SCH (09:00)
[2022-06-14] MEDS: Sildenafil Citrate 20 MG TAB PO SCH ×2 (15:38→20:13)
[2022-06-15] MEDS: Furosemide 40 MG/4 ML VIAL SLOW IVP SCH (06:48)
[2022-06-15 08:08] LABS: #Monocytes 0.4 10x3/uL (0.0-1.1); #Neutrophils 9.7 10x3/uL (1.5-8.4); %Basophils 0.4 % (0.0-2.0); %Eosinophils 0.4 % (0.0-6.0); %Lymphocytes 7.8 % (18.0-47.0); %Neutrophils 86.9 % (40.0-75.0); Hemoglobin 10.8 g/dL (12.0-15.5); Mean Corpuscular HGB CONC 32.4 g/dL (32.0-36.0); Mean Corpuscular Hemoglobin 31.3 pg (27.0-33.0); Mean Corpuscular Volume 96.5 fl (81.6-98.3); Mean Platelet Volume 12.5 fl (7.4-10.4); Platelet Count 110 10x3/uL (150-450); RBC Distribution Width 19.9 % (11.5-14.5); Red Blood Cell (RBC) Count 3.45 10x6/uL (3.90-5.03); White Blood Cell (WBC) Count 11.1 10x3/uL (3.5-10.5)
[2022-06-15] MEDS: Sildenafil Citrate 20 MG TAB PO SCH ×3 (08:17→19:51)
[2022-06-15] MEDS: Escitalopram Oxalate 10 mg Tablet PO SCH (08:17)
[2022-06-15] MEDS: Montelukast Sodium 10 mg Tablet PO SCH (08:17)
[2022-06-15] MEDS: Spironolactone 25 MG TAB PO SCH (08:17)
[2022-06-15] MEDS: AMBRISENTAN PO SCH (08:18)
[2022-06-15] MEDS: Piperacillin/Tazobactam 3.375 GM in Sodium Chloride 0.9% 100 ML IVPB SCH ×2 (08:18→15:13)
[2022-06-15] MEDS: Enoxaparin Sodium 40 MG/0.4 ML SYRINGE SC SCH ×2 (08:18→08:41)
[2022-06-15 08:22] LABS: Anion Gap 17 mmol/L (10-20); BUN (Urea Nitrogen) 30 mg/dL (7.0-18.7); Calc. Creatinine Clearance 98 mL/min (70-130); Carbon Dioxide 24 mmol/L (22-29); Chloride 101 mmol/L (98-107); Estimated GFR 55; Glucose 88 mg/dL (70-105); Potassium 3.9 mmol/L (3.5-5.1); Sodium 138 mmol/L (136-145)
[2022-06-16] MEDS: Escitalopram Oxalate 10 mg Tablet PO SCH (08:14)
[2022-06-16] MEDS: Montelukast Sodium 10 mg Tablet PO SCH (08:14)
[2022-06-16] MEDS: Enoxaparin Sodium 40 MG/0.4 ML SYRINGE SC SCH (08:14)
[2022-06-16] MEDS: Spironolactone 25 MG TAB PO SCH (08:14)
[2022-06-16] MEDS: Sildenafil Citrate 20 MG TAB PO SCH ×3 (08:14→19:53)
[2022-06-16] MEDS: Furosemide 40 MG TAB PO SCH (08:14)
[2022-06-16] MEDS: Piperacillin/Tazobactam 3.375 GM in Sodium Chloride 0.9% 100 ML IVPB SCH ×4 (09:19→23:51)
[2022-06-16 09:59] LABS: #Basophils 0.1 10x3/uL (0.0-0.2); #Eosinphils 0.1 10x3/uL (0.0-0.5); #Monocytes 0.4 10x3/uL (0.0-1.1); #Neutrophils 5.9 10x3/uL (1.5-8.4); %Basophils 0.7 % (0.0-2.0); %Eosinophils 1.4 % (0.0-6.0); %Lymphocytes 12.1 % (18.0-47.0); %Monocytes 4.8 % (0.0-10.0); %Neutrophils 80.6 % (40.0-75.0); Hemoglobin 11.5 g/dL (12.0-15.5); Mean Corpuscular HGB CONC 31.3 g/dL (32.0-36.0); Mean Corpuscular Hemoglobin 31.1 pg (27.0-33.0); Mean Corpuscular Volume 99.5 fl (81.6-98.3); Mean Platelet Volume 11.4 fl (7.4-10.4); Platelet Count 104 10x3/uL (150-450); RBC Distribution Width 19.9 % (11.5-14.5); White Blood Cell (WBC) Count 7.3 10x3/uL (3.5-10.5)
[2022-06-16 10:07] LABS: Anion Gap 15 mmol/L (10-20); BUN (Urea Nitrogen) 26 mg/dL (7.0-18.7); Calc. Creatinine Clearance 110 mL/min (70-130); Calcium 8.4 mg/dL (7.8-10.44); Carbon Dioxide 28 mmol/L (22-29); Chloride 100 mmol/L (98-107); Estimated GFR 62; Glucose 86 mg/dL (70-105); Potassium 3.5 mmol/L (3.5-5.1); Sodium 139 mmol/L (136-145)
[2022-06-16 10:19] LABS: Large Platelets SLIGHT; Platelet Morphology Comment Appears Decreased
[2022-06-16 10:20] LABS: Anisocytosis SLIGHT = 6-15 cells (100X) (0-5/hpf); Hypochromia SLIGHT = 6-15 cells (100X) (0-5/hpf); Macrocytosis SLIGHT = 6-15 cells (100X) (0-5/hpf); Microcytosis SLIGHT = 6-15 cells (100X) (0-5/hpf)
[2022-06-16 10:21] LABS: Target Cells SLIGHT = 2-5 cells (100X) (0-1/hpf)
[2022-06-16] MEDS: AMBRISENTAN PO SCH (10:52)
[2022-06-17 04:39] VITALS: TEMP 98.6
[2022-06-17 06:22] VITALS: BMI 42.0
[2022-06-17 07:33] VITALS: BP 101/60
[2022-06-17] MEDS: Sildenafil Citrate 20 MG TAB PO SCH (08:09)
[2022-06-17] MEDS: Montelukast Sodium 10 mg Tablet PO SCH (08:09)
[2022-06-17] MEDS: Escitalopram Oxalate 10 mg Tablet PO SCH (08:09)
[2022-06-17] MEDS: Enoxaparin Sodium 40 MG/0.4 ML SYRINGE SC SCH (08:09)
[2022-06-17] MEDS: Furosemide 40 MG TAB PO SCH (08:09)
[2022-06-17] MEDS: Spironolactone 25 MG TAB PO SCH (08:09)
[2022-06-17] MEDS: Piperacillin/Tazobactam 3.375 GM in Sodium Chloride 0.9% 100 ML IVPB SCH (08:12)
[2022-06-17] MEDS: AMBRISENTAN PO SCH (11:43)
== END 2022-06-17 12:04 | disposition home or self-care (01) | DRG 871 ==
LOC: CSHERS 13:01 → CSHICU 15:28
PROVIDERS: ADMIT Internal Medicine; ATTEND Internal Medicine
PROC: 5A09457 Assistance with Respiratory Ventilation, 24-96 Consecutive Hours, Continuous Positive Airway Pressure (ICD-10-PCS; principal; 2022-06-13)
DX: A41.9 Sepsis, unspecified organism (principal); I50.33 Acute on chronic diastolic (congestive) heart failure; J69.0 Pneumonitis due to inhalation of food and vomit; J96.21 Acute and chronic respiratory failure with hypoxia; Z68.41 Body mass index [BMI] 40.0-44.9, adult; R65.20 Severe sepsis without septic shock; I11.0 Hypertensive heart disease with heart failure; I27.20 Pulmonary hypertension, unspecified; G43.909 Migraine, unspecified, not intractable, without status migrainosus; J45.909 Unspecified asthma, uncomplicated; G47.33 Obstructive sleep apnea (adult) (pediatric); Z66 Do not resuscitate; D69.6 Thrombocytopenia, unspecified; I27.21 Secondary pulmonary arterial hypertension; E66.9 Obesity, unspecified; Z20.822 Contact with and (suspected) exposure to COVID-19; Z98.890 Other specified postprocedural states; Z88.8 Allergy status to other drugs, medicaments and biological substances; Z79.899 Other long term (current) drug therapy; Z90.49 Acquired absence of other specified parts of digestive tract; Q90.9 Down syndrome, unspecified
CPT/HCPCS: 36415; 36600; 51701; 71045; 80048; 80053; 81003; 81015; 82553; 82805; 83605; 83735; 83880; 84484; 85025; 87040; 87086; 93005; 93010; 93306; 94640; 94660; 94760; 96365; 96367; 96368; 96375; J0456; J0696; J1650; J1940; J2543; J2930; J3475; J3490; J7620

== ENCOUNTER 2023-02-18 13:03 | Inpatient (IN) | payer MEDICARE, OTHER ==
[2023-02-18 13:38] LABS: #Basophils 0.1 10x3/uL (0.0-0.2); #Eosinphils 0.1 10x3/uL (0.0-0.5); #Monocytes 0.4 10x3/uL (0.0-1.1); #Neutrophils 2.6 10x3/uL (1.5-8.4); %Basophils 1.6 % (0.0-2.0); %Eosinophils 1.6 % (0.0-6.0); %Lymphocytes 14.1 % (18.0-47.0); %Monocytes 9.5 % (0.0-10.0); %Neutrophils 71.6 % (40.0-75.0); Hemoglobin 10.3 g/dL (12.0-15.5); Mean Corpuscular HGB CONC 30.8 g/dL (32.0-36.0); Mean Corpuscular Hemoglobin 29.3 pg (27.0-33.0); Mean Corpuscular Volume 95.2 fl (81.6-98.3); Mean Platelet Volume 10.8 fl (7.4-10.4); Platelet Count 142 10x3/uL (150-450); RBC Distribution Width 18.6 % (11.5-14.5); Red Blood Cell (RBC) Count 3.51 10x6/uL (3.90-5.03); White Blood Cell (WBC) Count 3.7 10x3/uL (3.5-10.5)
[2023-02-18 13:50] LABS: ALT (SGPT) 10 U/L (8-55); AST (SGOT) 24 U/L (5-34); Albumin 3.4 g/dL (3.5-5.0); Alkaline Phosphatase 144 U/L (40-110); Anion Gap 13 mmol/L (10-20); BUN (Urea Nitrogen) 16 mg/dL (7.0-18.7); Bilirubin, Total 1.6 mg/dL (0.2-1.2); Calc. Creatinine Clearance 0 mL/min (70-130); Carbon Dioxide 26 mmol/L (22-29); Chloride 102 mmol/L (98-107); Estimated GFR 66; Globulin 3.8 g/dL (2.4-3.5); Glucose 117 mg/dL (70-105); Lipase 17 U/L (8-78); Magnesium 2.2 mg/dL (1.6-2.6); Potassium 3.4 mmol/L (3.5-5.1); Protein, Total 7.2 g/dL (6.0-8.3); Sodium 138 mmol/L (136-145)
[2023-02-18 14:24] LABS: SARS-CoV-2 NAA Rapid Test Not Detected (NotDetected)
[2023-02-18] MEDS ORDERED: Ipratropium/Albuterol 3 ML NEB ONE (15:49)
[2023-02-18] MEDS ORDERED: Azithromycin 500 MG VIAL ONE (15:52)
[2023-02-18] MEDS ORDERED: cefTRIAXone (ROCEPHIN) 2 GM VIAL ONE (15:53)
[2023-02-18 16:49] LABS: Troponin I Less than 0.010 ng/mL (< 0.028)
[2023-02-18] MEDS ORDERED: Acetaminophen 650 MG Suppository PR PRN (17:38)
[2023-02-18 20:04] LABS: Troponin I Less than 0.010 ng/mL (< 0.028)
[2023-02-18 22:51] VITALS: BMI 36.6
[2023-02-19 05:09] LABS: Anion Gap 13 mmol/L (10-20); BUN (Urea Nitrogen) 16 mg/dL (7.0-18.7); Calc. Creatinine Clearance 123 mL/min (70-130); Calcium 7.8 mg/dL (7.8-10.44); Carbon Dioxide 24 mmol/L (22-29); Chloride 102 mmol/L (98-107); Estimated GFR 88; Glucose 83 mg/dL (70-105); Potassium 3.6 mmol/L (3.5-5.1); Sodium 135 mmol/L (136-145)
[2023-02-19 05:26] LABS: #Basophils 0.1 10x3/uL (0.0-0.2); #Eosinphils 0.1 10x3/uL (0.0-0.5); #Monocytes 0.4 10x3/uL (0.0-1.1); %Basophils 1.9 % (0.0-2.0); %Eosinophils 3.1 % (0.0-6.0); %Lymphocytes 19.3 % (18.0-47.0); %Monocytes 12.1 % (0.0-10.0); %Neutrophils 62.7 % (40.0-75.0); Hemoglobin 9.6 g/dL (12.0-15.5); Mean Corpuscular HGB CONC 30.7 g/dL (32.0-36.0); Mean Corpuscular Hemoglobin 29.3 pg (27.0-33.0); Mean Corpuscular Volume 95.4 fl (81.6-98.3); Mean Platelet Volume 11.1 fl (7.4-10.4); Platelet Count 147 10x3/uL (150-450); RBC Distribution Width 18.5 % (11.5-14.5); Red Blood Cell (RBC) Count 3.28 10x6/uL (3.90-5.03); White Blood Cell (WBC) Count 3.2 10x3/uL (3.5-10.5)
[2023-02-19] MEDS ORDERED: Ipratropium/Albuterol 3 ML NEB NEB PRN (07:41)
[2023-02-19] MEDS ORDERED: AMBRISENTAN 10 MG PO SCH (09:00)
[2023-02-19] MEDS ORDERED: FUROSEMIDE 80 MG PO SCH (09:00)
[2023-02-19] MEDS ORDERED: Furosemide 40 MG/4 ML VIAL SLOW IVP SCH (09:00)
[2023-02-19] MEDS ORDERED: TADALAFIL 20 MG PO SCH (09:00)
[2023-02-19] MEDS: Fluticasone Propionate Nasal Spray 16 gm Bottle NASAL SCH (09:41)
[2023-02-19] MEDS: Topiramate 25 MG TAB PO SCH ×2 (09:45→21:07)
[2023-02-19] MEDS: Magnesium Oxide 250 MG TAB PO SCH (09:45)
[2023-02-19] MEDS: Acetaminophen 325 MG TAB PO PRN (09:45)
[2023-02-19] MEDS: Spironolactone 25 MG TAB PO SCH (09:46)
[2023-02-19] MEDS: Escitalopram Oxalate 10 mg Tablet PO SCH (09:46)
[2023-02-19] MEDS: Ascorbic Acid 500 mg Chewable Tablet PO SCH (09:46)
[2023-02-19] MEDS: Loratadine 10 MG TAB PO SCH (09:46)
[2023-02-19] MEDS: Cyanocobalamin (Vitamin B-12) 1,000 MCG TAB PO SCH (09:46)
[2023-02-19] MEDS: Cholecalciferol 1,000 UNITS (25 MCG) TAB PO SCH (09:46)
[2023-02-19] MEDS: Montelukast Sodium 10 mg Tablet PO SCH (09:47)
[2023-02-19] MEDS: Mometasone/Formoterol 60 PUFF AER INH SCH ×2 (10:15→19:17)
[2023-02-19] MEDS: Furosemide 40 MG/4 ML VIAL SLOW IVP SCH (13:18)
[2023-02-20] MEDS: Acetaminophen 325 MG TAB PO PRN ×2 (01:19→09:00)
[2023-02-20 04:45] LABS: Anion Gap 12 mmol/L (10-20); BUN (Urea Nitrogen) 17 mg/dL (7.0-18.7); Calc. Creatinine Clearance 121 mL/min (70-130); Calcium 8.1 mg/dL (7.8-10.44); Carbon Dioxide 25 mmol/L (22-29); Chloride 103 mmol/L (98-107); Estimated GFR 87; Glucose 88 mg/dL (70-105); Potassium 3.9 mmol/L (3.5-5.1); Sodium 136 mmol/L (136-145)
[2023-02-20 05:06] LABS: #Basophils 0.1 10x3/uL (0.0-0.2); #Eosinphils 0.1 10x3/uL (0.0-0.5); #Monocytes 0.4 10x3/uL (0.0-1.1); %Basophils 1.4 % (0.0-2.0); %Eosinophils 2.8 % (0.0-6.0); %Lymphocytes 15.8 % (18.0-47.0); %Monocytes 9.2 % (0.0-10.0); %Neutrophils 70.6 % (40.0-75.0); Hemoglobin 9.9 g/dL (12.0-15.5); Mean Corpuscular HGB CONC 30.8 g/dL (32.0-36.0); Mean Corpuscular Hemoglobin 29.5 pg (27.0-33.0); Mean Corpuscular Volume 95.5 fl (81.6-98.3); Mean Platelet Volume 11.6 fl (7.4-10.4); Platelet Count 144 10x3/uL (150-450); RBC Distribution Width 18.5 % (11.5-14.5); Red Blood Cell (RBC) Count 3.36 10x6/uL (3.90-5.03); White Blood Cell (WBC) Count 4.2 10x3/uL (3.5-10.5)
[2023-02-20] MEDS: Furosemide 40 MG/4 ML VIAL SLOW IVP SCH ×2 (05:29→15:45)
[2023-02-20] MEDS: Loratadine 10 MG TAB PO SCH (09:00)
[2023-02-20] MEDS: Cholecalciferol 1,000 UNITS (25 MCG) TAB PO SCH (09:00)
[2023-02-20] MEDS: Spironolactone 25 MG TAB PO SCH (09:00)
[2023-02-20] MEDS: Magnesium Oxide 250 MG TAB PO SCH (09:01)
[2023-02-20] MEDS: Escitalopram Oxalate 10 mg Tablet PO SCH (09:01)
[2023-02-20] MEDS: Cyanocobalamin (Vitamin B-12) 1,000 MCG TAB PO SCH (09:01)
[2023-02-20] MEDS: Topiramate 25 MG TAB PO SCH ×2 (09:01→21:36)
[2023-02-20] MEDS: Ascorbic Acid 500 mg Chewable Tablet PO SCH (09:01)
[2023-02-20] MEDS: Montelukast Sodium 10 mg Tablet PO SCH (09:01)
[2023-02-20] MEDS: Fluticasone Propionate Nasal Spray 16 gm Bottle NASAL SCH (09:02)
[2023-02-20] MEDS: Mometasone/Formoterol 60 PUFF AER INH SCH ×3 (09:10→19:11)
[2023-02-21 04:24] LABS: Anion Gap 13 mmol/L (10-20); BUN (Urea Nitrogen) 18 mg/dL (7.0-18.7); Calc. Creatinine Clearance 123 mL/min (70-130); Carbon Dioxide 26 mmol/L (22-29); Chloride 102 mmol/L (98-107); Estimated GFR 88; Potassium 3.7 mmol/L (3.5-5.1); Sodium 137 mmol/L (136-145)
[2023-02-21 04:25] LABS: Calcium 8.3 mg/dL (7.8-10.44); Glucose 83 mg/dL (70-105)
[2023-02-21 05:00] LABS: #Basophils 0.1 10x3/uL (0.0-0.2); #Eosinphils 0.1 10x3/uL (0.0-0.5); #Monocytes 0.3 10x3/uL (0.0-1.1); #Neutrophils 2.3 10x3/uL (1.5-8.4); %Basophils 1.7 % (0.0-2.0); %Eosinophils 2.5 % (0.0-6.0); %Lymphocytes 20.9 % (18.0-47.0); %Monocytes 9.3 % (0.0-10.0); Hemoglobin 10.6 g/dL (12.0-15.5); Mean Corpuscular HGB CONC 30.9 g/dL (32.0-36.0); Platelet Count 140 10x3/uL (150-450); RBC Distribution Width 18.3 % (11.5-14.5); Red Blood Cell (RBC) Count 3.65 10x6/uL (3.90-5.03); White Blood Cell (WBC) Count 3.5 10x3/uL (3.5-10.5)
[2023-02-21] MEDS: Furosemide 40 MG/4 ML VIAL SLOW IVP SCH ×2 (06:02→13:49)
[2023-02-21] MEDS: Magnesium Oxide 250 MG TAB PO SCH (08:30)
[2023-02-21] MEDS: Escitalopram Oxalate 10 mg Tablet PO SCH (08:30)
[2023-02-21] MEDS: Ascorbic Acid 500 mg Chewable Tablet PO SCH (08:30)
[2023-02-21] MEDS: Cyanocobalamin (Vitamin B-12) 1,000 MCG TAB PO SCH (08:30)
[2023-02-21] MEDS: Montelukast Sodium 10 mg Tablet PO SCH (08:30)
[2023-02-21] MEDS: Spironolactone 25 MG TAB PO SCH (08:30)
[2023-02-21] MEDS: Cholecalciferol 1,000 UNITS (25 MCG) TAB PO SCH (08:30)
[2023-02-21] MEDS: Loratadine 10 MG TAB PO SCH (08:30)
[2023-02-21] MEDS: Topiramate 25 MG TAB PO SCH ×2 (08:31→22:01)
[2023-02-21] MEDS: Fluticasone Propionate Nasal Spray 16 gm Bottle NASAL SCH (08:31)
[2023-02-21] MEDS: Mometasone/Formoterol 60 PUFF AER INH SCH ×2 (11:38→19:19)
[2023-02-22 05:54] LABS: #Basophils 0.1 10x3/uL (0.0-0.2); #Eosinphils 0.1 10x3/uL (0.0-0.5); #Monocytes 0.3 10x3/uL (0.0-1.1); #Neutrophils 2.5 10x3/uL (1.5-8.4); %Basophils 2.1 % (0.0-2.0); %Eosinophils 2.9 % (0.0-6.0); %Lymphocytes 20.6 % (18.0-47.0); %Monocytes 7.9 % (0.0-10.0); Hemoglobin 10.6 g/dL (12.0-15.5); Mean Corpuscular HGB CONC 31.2 g/dL (32.0-36.0); Mean Corpuscular Hemoglobin 29.5 pg (27.0-33.0); Mean Corpuscular Volume 94.7 fl (81.6-98.3); Mean Platelet Volume 11.5 fl (7.4-10.4); Platelet Count 148 10x3/uL (150-450); RBC Distribution Width 18.2 % (11.5-14.5); Red Blood Cell (RBC) Count 3.59 10x6/uL (3.90-5.03); White Blood Cell (WBC) Count 3.8 10x3/uL (3.5-10.5)
[2023-02-22 05:57] LABS: Anion Gap 13 mmol/L (10-20); BUN (Urea Nitrogen) 20 mg/dL (7.0-18.7); Calc. Creatinine Clearance 126 mL/min (70-130); Carbon Dioxide 25 mmol/L (22-29); Chloride 103 mmol/L (98-107); Potassium 3.9 mmol/L (3.5-5.1); Sodium 137 mmol/L (136-145)
[2023-02-22 05:58] LABS: Calcium 8.2 mg/dL (7.8-10.44); Estimated GFR 90; Glucose 85 mg/dL (70-105)
[2023-02-22] MEDS: Furosemide 40 MG/4 ML VIAL SLOW IVP SCH (06:03)
[2023-02-22] MEDS: Mometasone/Formoterol 60 PUFF AER INH SCH (07:19)
[2023-02-22] MEDS: Cholecalciferol 1,000 UNITS (25 MCG) TAB PO SCH (10:08)
[2023-02-22] MEDS: Ascorbic Acid 500 mg Chewable Tablet PO SCH (10:08)
[2023-02-22] MEDS: Cyanocobalamin (Vitamin B-12) 1,000 MCG TAB PO SCH (10:09)
[2023-02-22] MEDS: Escitalopram Oxalate 10 mg Tablet PO SCH (10:09)
[2023-02-22] MEDS: Fluticasone Propionate Nasal Spray 16 gm Bottle NASAL SCH (10:10)
[2023-02-22] MEDS: Loratadine 10 MG TAB PO SCH (10:11)
[2023-02-22] MEDS: Montelukast Sodium 10 mg Tablet PO SCH (10:11)
[2023-02-22] MEDS: Magnesium Oxide 250 MG TAB PO SCH (10:11)
[2023-02-22] MEDS: Topiramate 25 MG TAB PO SCH (10:11)
[2023-02-22] MEDS: Spironolactone 25 MG TAB PO SCH (10:11)
[2023-02-22 12:12] VITALS: BP 98/50; TEMP 97.9
== END 2023-02-22 13:45 | DRG 291 ==
LOC: CSHERS 13:03 → CSHTELE 17:15
PROVIDERS: ADMIT Internal Medicine; ATTEND Internal Medicine
DX: I11.0 Hypertensive heart disease with heart failure (principal); I50.33 Acute on chronic diastolic (congestive) heart failure; J96.21 Acute and chronic respiratory failure with hypoxia; G47.33 Obstructive sleep apnea (adult) (pediatric); I27.21 Secondary pulmonary arterial hypertension; Z66 Do not resuscitate; R59.0 Localized enlarged lymph nodes; J45.909 Unspecified asthma, uncomplicated; M79.7 Fibromyalgia; E66.01 Morbid (severe) obesity due to excess calories; I87.2 Venous insufficiency (chronic) (peripheral); Z68.36 Body mass index [BMI] 36.0-36.9, adult; Q24.9 Congenital malformation of heart, unspecified; Z88.8 Allergy status to other drugs, medicaments and biological substances; Q90.9 Down syndrome, unspecified; Z79.899 Other long term (current) drug therapy; Z98.890 Other specified postprocedural states; Z90.89 Acquired absence of other organs; Z20.822 Contact with and (suspected) exposure to COVID-19
CPT/HCPCS: 36415; 71045; 71275; 80048; 80053; 83605; 83690; 83735; 83880; 84484; 85025; 85379; 87040; 93005; 94640; 94664; 94760; 96365; 96367; J0456; J0696; J1940; J7620; Q9967

== ENCOUNTER 2023-03-18 16:13 | Emergency (ER) | payer MEDICARE, OTHER ==
[2023-03-18] MEDS ORDERED: Ipratropium/Albuterol 3 ML NEB ONE (17:19)
[2023-03-18 17:33] LABS: Actual Bicarbonate (HCO3v) 26.6 mEq/L (22-28); Base Excess -0.2 mEq/L (-2 - +2); Calcium, Ionized (venous) 1.04 mmol/L (1.16-1.32); Chloride (VBG) 101 mmol/L (98-106); Hematocrit-VBG 36 % (36.0-47.0); Hemoglobin (Hb) 12.1 g/dL (11.7-15.5); Puncture Site Other Site; RapidComm Collect By CBN; Sodium 136.8 mmol/L (133-146); pH (venous) 7.319 (7.32-7.43)
[2023-03-18 17:44] LABS: #Basophils 0.1 10x3/uL (0.0-0.2); #Eosinphils 0.1 10x3/uL (0.0-0.5); #Monocytes 0.2 10x3/uL (0.0-1.1); #Neutrophils 8.1 10x3/uL (1.5-8.4); %Basophils 0.6 % (0.0-2.0); %Eosinophils 0.8 % (0.0-6.0); %Lymphocytes 5.4 % (18.0-47.0); %Monocytes 2.4 % (0.0-10.0); %Neutrophils 90.4 % (40.0-75.0); Hemoglobin 11.4 g/dL (12.0-15.5); Mean Corpuscular HGB CONC 30.9 g/dL (32.0-36.0); Mean Corpuscular Hemoglobin 29.8 pg (27.0-33.0); Mean Corpuscular Volume 96.3 fl (81.6-98.3); Mean Platelet Volume 10.5 fl (7.4-10.4); Platelet Count 141 10x3/uL (150-450); RBC Distribution Width 20.1 % (11.5-14.5); Red Blood Cell (RBC) Count 3.83 10x6/uL (3.90-5.03); White Blood Cell (WBC) Count 8.9 10x3/uL (3.5-10.5)
[2023-03-18 17:48] LABS: ALT (SGPT) 11 U/L (8-55); AST (SGOT) 29 U/L (5-34); Albumin 3.9 g/dL (3.5-5.0); Alkaline Phosphatase 145 U/L (40-110); Anion Gap 17 mmol/L (10-20); BUN (Urea Nitrogen) 19 mg/dL (7.0-18.7); Bilirubin, Total 1.6 mg/dL (0.2-1.2); Calc. Creatinine Clearance 0 mL/min (70-130); Carbon Dioxide 25 mmol/L (22-29); Chloride 100 mmol/L (98-107); Estimated GFR 73; Globulin 4.2 g/dL (2.4-3.5); Glucose 89 mg/dL (70-105); Potassium 3.7 mmol/L (3.5-5.1); Protein, Total 8.1 g/dL (6.0-8.3); Sodium 138 mmol/L (136-145)
[2023-03-18] MEDS ORDERED: Furosemide 100 MG/10 ML VIAL ONE (18:43)
[2023-03-18] MEDS ORDERED: cefTRIAXone (ROCEPHIN) 1 GM VIAL ONE (18:44)
[2023-03-18] MEDS ORDERED: Azithromycin 500 MG VIAL ONE (18:44)
[2023-03-18] MEDS ORDERED: Furosemide 40 MG/4 ML VIAL ONE (18:45)
[2023-03-18] MEDS ORDERED: methylPREDNISolone Sod Succ 40 MG VIAL ONE (18:58)
== END 2023-03-18 20:17 | disposition short-term general hospital (02) ==
LOC: CSHERS 16:13
DX: J18.9 Pneumonia, unspecified organism (principal); I11.0 Hypertensive heart disease with heart failure; I50.9 Heart failure, unspecified; J45.909 Unspecified asthma, uncomplicated; Z79.51 Long term (current) use of inhaled steroids
CPT/HCPCS: 71045; 80053; 82805; 83880; 84484; 85025; 87040; 96374; 96375; 99285; J0456; 36415; J0696; J1940; J2920; J7620

== ENCOUNTER 2023-07-27 10:33 | Inpatient (IN) | payer MEDICARE, OTHER ==
[2023-07-27] MEDS ORDERED: Furosemide 40 MG/4 ML VIAL ONE (10:53)
[2023-07-27 11:30] LABS: #Monocytes 0.4 10x3/uL (0.0-1.1); #Neutrophils 1.6 10x3/uL (1.5-8.4); %Basophils 1.3 % (0.0-2.0); %Eosinophils 0.7 % (0.0-6.0); %Lymphocytes 31.9 % (18.0-47.0); %Monocytes 13.6 % (0.0-10.0); %Neutrophils 52.2 % (40.0-75.0); Hematocrit 36.8 % (34.9-44.5); Hemoglobin 11.9 g/dL (12.0-15.5); Mean Corpuscular HGB CONC 32.3 g/dL (32.0-36.0); Mean Corpuscular Hemoglobin 31.4 pg (27.0-33.0); Mean Corpuscular Volume 97.1 fl (81.6-98.3); Mean Platelet Volume 11.7 fl (7.4-10.4); Platelet Count 68 10x3/uL (150-450); RBC Distribution Width 19.4 % (11.5-14.5); Red Blood Cell (RBC) Count 3.79 10x6/uL (3.90-5.03)
[2023-07-27 11:36] LABS: ALT (SGPT) 11 U/L (8-55); AST (SGOT) 33 U/L (5-34); Albumin 3.5 g/dL (3.5-5.0); Alkaline Phosphatase 129 U/L (40-110); Anion Gap 14 mmol/L (10-20); BUN (Urea Nitrogen) 21 mg/dL (7.0-18.7); Bilirubin, Total 1.3 mg/dL (0.2-1.2); Calc. Creatinine Clearance 0 mL/min (70-130); Calcium 7.6 mg/dL (7.8-10.44); Carbon Dioxide 25 mmol/L (22-29); Chloride 100 mmol/L (98-107); Estimated GFR 70; Globulin 3.8 g/dL (2.4-3.5); Glucose 91 mg/dL (70-105); Potassium 3.4 mmol/L (3.5-5.1); Protein, Total 7.3 g/dL (6.0-8.3); Sodium 136 mmol/L (136-145)
[2023-07-27 11:38] LABS: Troponin I 0.011 ng/mL (< 0.028)
[2023-07-27 12:13] LABS: Large Platelets SLIGHT (None Seen); Platelet Adequacy Comment Appears Decreased
[2023-07-27 12:55] LABS: SARS-CoV-2 NAA Rapid Test Not Detected (NotDetected)
[2023-07-27 13:51] VITALS: BMI 32.5
[2023-07-27] MEDS ORDERED: FLU VACC QS2023-24(6MOS UP)/PF 60 MCG/0.5 ML SYRINGE IM ONE (14:15)
[2023-07-27] MEDS: Furosemide 40 MG/4 ML VIAL SLOW IVP SCH (14:27)
[2023-07-27] MEDS: Mometasone/Formoterol 60 PUFF AER INH SCH (19:30)
[2023-07-27] MEDS: Topiramate 25 MG TAB PO SCH (21:53)
[2023-07-28 03:38] LABS: Hematocrit 36.6 % (34.9-44.5); Hemoglobin 12.2 g/dL (12.0-15.5); Mean Corpuscular HGB CONC 33.3 g/dL (32.0-36.0); Mean Corpuscular Hemoglobin 32.4 pg (27.0-33.0); Mean Corpuscular Volume 97.1 fl (81.6-98.3); Mean Platelet Volume 12.1 fl (7.4-10.4); Platelet Count 70 10x3/uL (150-450); RBC Distribution Width 19.1 % (11.5-14.5); Red Blood Cell (RBC) Count 3.77 10x6/uL (3.90-5.03); White Blood Cell (WBC) Count 1.8 10x3/uL (3.5-10.5)
[2023-07-28 04:14] LABS: ALT (SGPT) 11 U/L (8-55); AST (SGOT) 29 U/L (5-34); Albumin 3.4 g/dL (3.5-5.0); Alkaline Phosphatase 119 U/L (40-110); Anion Gap 14 mmol/L (10-20); BUN (Urea Nitrogen) 24 mg/dL (7.0-18.7); Bilirubin, Total 1.1 mg/dL (0.2-1.2); Calc. Creatinine Clearance 102 mL/min (70-130); Carbon Dioxide 24 mmol/L (22-29); Chloride 97 mmol/L (98-107); Estimated GFR 78; Glucose 128 mg/dL (70-105); Potassium 3.5 mmol/L (3.5-5.1); Protein, Total 7.4 g/dL (6.0-8.3); Sodium 131 mmol/L (136-145)
[2023-07-28 04:49] LABS: Large Platelets SLIGHT (None Seen); Lymphocytes 23 % (21-51); Monocytes 6 % (0-10); Myelocyte 1 % (0-0); Platelet Adequacy Comment Appears Decreased; RBC Morph Comment Within Normal Limits
[2023-07-28 04:50] LABS: MDiff Complete? YES
[2023-07-28] MEDS: Furosemide 40 MG/4 ML VIAL SLOW IVP SCH ×2 (05:54→13:56)
[2023-07-28] MEDS: Topiramate 25 MG TAB PO SCH ×2 (08:34→22:49)
[2023-07-28] MEDS: Escitalopram Oxalate 10 mg Tablet PO SCH (08:34)
[2023-07-28] MEDS: Fluticasone Propionate Nasal Spray 16 gm Bottle NASAL SCH (08:36)
[2023-07-28] MEDS ORDERED: AMBRISENTAN 10 MG PO SCH ×2 (09:00→11:45)
[2023-07-28] MEDS: Mometasone/Formoterol 60 PUFF AER INH SCH ×2 (09:29→19:00)
[2023-07-28] MEDS ORDERED: TADALAFIL 20 MG PO SCH (11:45)
[2023-07-28] MEDS: Acetaminophen 325 MG TAB PO PRN (22:49)
[2023-07-29 03:34] LABS: #Monocytes 0.2 10x3/uL (0.0-1.1); #Neutrophils 2.4 10x3/uL (1.5-8.4); %Basophils 0.9 % (0.0-2.0); %Lymphocytes 19.3 % (18.0-47.0); %Monocytes 4.7 % (0.0-10.0); %Neutrophils 74.8 % (40.0-75.0); Hematocrit 36.7 % (34.9-44.5); Hemoglobin 11.8 g/dL (12.0-15.5); Mean Corpuscular HGB CONC 32.2 g/dL (32.0-36.0); Mean Corpuscular Hemoglobin 31.5 pg (27.0-33.0); Mean Corpuscular Volume 97.9 fl (81.6-98.3); Mean Platelet Volume 12.2 fl (7.4-10.4); Platelet Count 74 10x3/uL (150-450); RBC Distribution Width 19.2 % (11.5-14.5); Red Blood Cell (RBC) Count 3.75 10x6/uL (3.90-5.03); White Blood Cell (WBC) Count 3.2 10x3/uL (3.5-10.5)
[2023-07-29 03:54] LABS: Platelet Adequacy Comment Appears Decreased; RBC Morph Comment Within Normal Limits
[2023-07-29 04:24] LABS: ALT (SGPT) 11 U/L (8-55); AST (SGOT) 28 U/L (5-34); Albumin 3.2 g/dL (3.5-5.0); Alkaline Phosphatase 101 U/L (40-110); Anion Gap 13 mmol/L (10-20); BUN (Urea Nitrogen) 32 mg/dL (7.0-18.7); Bilirubin, Total 0.9 mg/dL (0.2-1.2); Calc. Creatinine Clearance 97 mL/min (70-130); Carbon Dioxide 26 mmol/L (22-29); Chloride 101 mmol/L (98-107); Estimated GFR 74; Globulin 3.9 g/dL (2.4-3.5); Glucose 93 mg/dL (70-105); Potassium 3.3 mmol/L (3.5-5.1); Protein, Total 7.1 g/dL (6.0-8.3); Sodium 137 mmol/L (136-145)
[2023-07-29] MEDS: Mometasone/Formoterol 60 PUFF AER INH SCH ×2 (08:30→19:05)
[2023-07-29] MEDS: TADALAFIL 20 MG PO SCH (09:16)
[2023-07-29] MEDS: AMBRISENTAN 10 MG PO SCH (09:16)
[2023-07-29] MEDS: Escitalopram Oxalate 10 mg Tablet PO SCH (09:17)
[2023-07-29] MEDS: Topiramate 25 MG TAB PO SCH ×3 (09:17→23:11)
[2023-07-29] MEDS ORDERED: Potassium Bicarbonate/Cit Ac 20 MEQ TAB PO SCH ×2 (09:30→10:45)
[2023-07-29] MEDS: Furosemide 40 MG/4 ML VIAL SLOW IVP SCH ×2 (09:35→14:42)
[2023-07-29] MEDS: Fluticasone Propionate Nasal Spray 16 gm Bottle NASAL SCH (10:52)
[2023-07-30 04:58] LABS: Hematocrit 38.4 % (34.9-44.5); Hemoglobin 12.2 g/dL (12.0-15.5); Mean Corpuscular HGB CONC 31.8 g/dL (32.0-36.0); Mean Corpuscular Hemoglobin 31.4 pg (27.0-33.0); Mean Platelet Volume 11.2 fl (7.4-10.4); Platelet Count 77 10x3/uL (150-450); RBC Distribution Width 19.4 % (11.5-14.5); Red Blood Cell (RBC) Count 3.88 10x6/uL (3.90-5.03); White Blood Cell (WBC) Count 2.6 10x3/uL (3.5-10.5)
[2023-07-30 04:59] LABS: ALT (SGPT) 9 U/L (8-55); AST (SGOT) 31 U/L (5-34); Albumin 3.2 g/dL (3.5-5.0); Alkaline Phosphatase 98 U/L (40-110); Anion Gap 15 mmol/L (10-20); BUN (Urea Nitrogen) 26 mg/dL (7.0-18.7); Bilirubin, Total 1.1 mg/dL (0.2-1.2); Calc. Creatinine Clearance 116 mL/min (70-130); Calcium 8.3 mg/dL (7.8-10.44); Carbon Dioxide 29 mmol/L (22-29); Chloride 101 mmol/L (98-107); Estimated GFR 89; Glucose 80 mg/dL (70-105); Potassium 3.6 mmol/L (3.5-5.1); Protein, Total 7.2 g/dL (6.0-8.3); Sodium 141 mmol/L (136-145)
[2023-07-30 05:03] LABS: MDiff Complete? YES
[2023-07-30 05:15] LABS: Platelet Adequacy Comment Appears Decreased; RBC Morph Comment Within Normal Limits
[2023-07-30 05:16] LABS: Large Platelets SLIGHT (None Seen)
[2023-07-30 05:17] LABS: Band 7 % (5-11); Eosinophils 2 % (0-10); Lymphocytes 36 % (21-51); Monocytes 8 % (0-10); Neutrophil 46 % (42-75); Reactive Lymphocytes 1 % (0-10)
[2023-07-30] MEDS: Furosemide 40 MG/4 ML VIAL SLOW IVP SCH ×2 (06:00→14:27)
[2023-07-30] MEDS ORDERED: Albumin 25% 25 GM/100 ML BOT IVPB SCH (06:15)
[2023-07-30] MEDS: Mometasone/Formoterol 60 PUFF AER INH SCH ×2 (07:30→19:09)
[2023-07-30] MEDS: TADALAFIL 20 MG PO SCH (08:46)
[2023-07-30] MEDS: Escitalopram Oxalate 10 mg Tablet PO SCH (08:46)
[2023-07-30] MEDS: Topiramate 25 MG TAB PO SCH ×2 (08:46→21:04)
[2023-07-30] MEDS: AMBRISENTAN 10 MG PO SCH (08:46)
[2023-07-30] MEDS: Fluticasone Propionate Nasal Spray 16 gm Bottle NASAL SCH (09:37)
[2023-07-30] MEDS: Ipratropium/Albuterol 3 ML NEB NEB PRN (15:17)
[2023-07-30] MEDS: Acetaminophen 325 MG TAB PO PRN (15:42)
[2023-07-31 03:25] LABS: Hematocrit 40.2 % (34.9-44.5); Hemoglobin 12.7 g/dL (12.0-15.5); Mean Corpuscular HGB CONC 31.6 g/dL (32.0-36.0); Mean Corpuscular Hemoglobin 31.1 pg (27.0-33.0); Mean Corpuscular Volume 98.5 fl (81.6-98.3); Mean Platelet Volume 11.5 fl (7.4-10.4); Platelet Count 84 10x3/uL (150-450); RBC Distribution Width 18.9 % (11.5-14.5); Red Blood Cell (RBC) Count 4.08 10x6/uL (3.90-5.03); White Blood Cell (WBC) Count 4.1 10x3/uL (3.5-10.5)
[2023-07-31 03:27] LABS: MDiff Complete? YES
[2023-07-31 03:42] LABS: ALT (SGPT) 10 U/L (8-55); AST (SGOT) 30 U/L (5-34); Albumin 3.5 g/dL (3.5-5.0); Alkaline Phosphatase 99 U/L (40-110); Anion Gap 14 mmol/L (10-20); BUN (Urea Nitrogen) 24 mg/dL (7.0-18.7); Bilirubin, Total 1.4 mg/dL (0.2-1.2); Calc. Creatinine Clearance 119 mL/min (70-130); Calcium 8.7 mg/dL (7.8-10.44); Carbon Dioxide 31 mmol/L (22-29); Chloride 98 mmol/L (98-107); Estimated GFR 93; Globulin 4.1 g/dL (2.4-3.5); Glucose 102 mg/dL (70-105); Potassium 3.3 mmol/L (3.5-5.1); Protein, Total 7.6 g/dL (6.0-8.3); Sodium 140 mmol/L (136-145)
[2023-07-31 03:45] LABS: Platelet Adequacy Comment Appears Decreased; RBC Morph Comment Within Normal Limits
[2023-07-31 03:50] LABS: Band 6 % (5-11); Eosinophils 3 % (0-10); Lymphocytes 24 % (21-51); Monocytes 6 % (0-10); Neutrophil 59 % (42-75); Reactive Lymphocytes 2 % (0-10)
[2023-07-31] MEDS ORDERED: Potassium Chloride 20 MEQ TAB PO SCH (05:00)
[2023-07-31] MEDS: Ipratropium/Albuterol 3 ML NEB NEB PRN ×2 (05:35→07:35)
[2023-07-31 05:36] LABS: Magnesium 2.1 mg/dL (1.6-2.6)
[2023-07-31] MEDS: Furosemide 40 MG/4 ML VIAL SLOW IVP SCH ×2 (05:38→16:35)
[2023-07-31] MEDS: Acetaminophen 325 MG TAB PO PRN (06:29)
[2023-07-31] MEDS: Mometasone/Formoterol 60 PUFF AER INH SCH (07:05)
[2023-07-31] MEDS: Potassium Chloride 20 MEQ TAB PO SCH (08:08)
[2023-07-31] MEDS: Escitalopram Oxalate 10 mg Tablet PO SCH (09:07)
[2023-07-31] MEDS: TADALAFIL 20 MG PO SCH (09:09)
[2023-07-31] MEDS: AMBRISENTAN 10 MG PO SCH (09:09)
[2023-07-31] MEDS: Topiramate 25 MG TAB PO SCH ×2 (10:07→21:05)
[2023-07-31] MEDS: Fluticasone Propionate Nasal Spray 16 gm Bottle NASAL SCH (10:08)
[2023-07-31 10:56] LABS: Actual Bicarbonate (HCO3v) 34.1 mEq/L (22-28); Analyzer IN Cardio CS ICU; Base Excess 7.7 mEq/L (-2 - +2); Calcium, Ionized (venous) 1.06 mmol/L (1.16-1.32); Chloride (VBG) 99 mmol/L (98-106); Hematocrit-VBG 40 % (36.0-47.0); Hemoglobin (Hb) 13.7 g/dL (11.7-15.5); Potassium (VBG) 3.82 mmol/L (3.70-5.30); Puncture Site Other Site; RapidComm Collect By CBN; Sodium 141 mmol/L (133-146); pH (venous) 7.408 (7.32-7.43)
[2023-07-31] MEDS: Cefepime 1 GM in Sodium Chloride 0.9% 100 ML IVPB SCH (13:13)
[2023-07-31] MEDS ORDERED: VANCOMYCIN 1.5 GM in Sodium Chloride 0.9% 500 ML IVPB SCH (14:00)
[2023-07-31 14:10] LABS: SARS-CoV-2 NAA Rapid Test Not Detected (NotDetected)
[2023-07-31] MEDS ORDERED: Budesonide 0.25 MG/2 ML NEB ONE (18:37)
[2023-07-31] MEDS: Budesonide 0.5 MG/2 ML NEB INH SCH (18:45)
[2023-08-01] MEDS: Cefepime 1 GM in Sodium Chloride 0.9% 100 ML IVPB SCH ×2 (00:14→14:32)
[2023-08-01] MEDS ORDERED: Guaifenesin DM 100-10/5 ML UDCUP PO SCH (01:00)
[2023-08-01] MEDS: Vancomycin HCl 750 MG in Sodium Chloride 0.9% 250 ML 250 ML IVPB SCH ×2 (01:40→14:42)
[2023-08-01 04:20] LABS: Hematocrit 39.9 % (34.9-44.5); Hemoglobin 12.6 g/dL (12.0-15.5); Mean Corpuscular HGB CONC 31.6 g/dL (32.0-36.0); Mean Corpuscular Hemoglobin 31.1 pg (27.0-33.0); Mean Corpuscular Volume 98.5 fl (81.6-98.3); Mean Platelet Volume 11.1 fl (7.4-10.4); Platelet Count 94 10x3/uL (150-450); RBC Distribution Width 18.8 % (11.5-14.5); Red Blood Cell (RBC) Count 4.05 10x6/uL (3.90-5.03); White Blood Cell (WBC) Count 5.8 10x3/uL (3.5-10.5)
[2023-08-01 04:30] LABS: ALT (SGPT) 8 U/L (8-55); AST (SGOT) 23 U/L (5-34); Albumin 3.3 g/dL (3.5-5.0); Alkaline Phosphatase 98 U/L (40-110); Anion Gap 14 mmol/L (10-20); BUN (Urea Nitrogen) 20 mg/dL (7.0-18.7); Bilirubin, Total 1.7 mg/dL (0.2-1.2); Calc. Creatinine Clearance 118 mL/min (70-130); Calcium 8.4 mg/dL (7.8-10.44); Carbon Dioxide 28 mmol/L (22-29); Chloride 100 mmol/L (98-107); Estimated GFR 97; Globulin 4.1 g/dL (2.4-3.5); Glucose 87 mg/dL (70-105); Potassium 3.9 mmol/L (3.5-5.1); Protein, Total 7.4 g/dL (6.0-8.3); Sodium 138 mmol/L (136-145)
[2023-08-01 04:42] LABS: #Eosinphils 0.1 10x3/uL (0.0-0.5); #Monocytes 0.4 10x3/uL (0.0-1.1); #Neutrophils 4.3 10x3/uL (1.5-8.4); %Basophils 0.7 % (0.0-2.0); %Eosinophils 1.6 % (0.0-6.0); %Lymphocytes 15.3 % (18.0-47.0); %Monocytes 7.2 % (0.0-10.0); %Neutrophils 74.9 % (40.0-75.0)
[2023-08-01 04:50] LABS: Large Platelets SLIGHT (None Seen); Platelet Adequacy Comment Appears Decreased; RBC Morph Comment Within Normal Limits
[2023-08-01] MEDS: Furosemide 40 MG/4 ML VIAL SLOW IVP SCH ×2 (05:25→14:34)
[2023-08-01] MEDS: Budesonide 0.5 MG/2 ML NEB INH SCH ×2 (07:28→19:02)
[2023-08-01] MEDS: Ipratropium/Albuterol 3 ML NEB NEB PRN (07:29)
[2023-08-01] MEDS: AMBRISENTAN 10 MG PO SCH (11:08)
[2023-08-01] MEDS: Topiramate 25 MG TAB PO SCH ×2 (11:08→21:34)
[2023-08-01] MEDS: Potassium Chloride 20 MEQ TAB PO SCH (11:08)
[2023-08-01] MEDS: Escitalopram Oxalate 10 mg Tablet PO SCH (11:09)
[2023-08-01] MEDS: Fluticasone Propionate Nasal Spray 16 gm Bottle NASAL SCH (11:09)
[2023-08-01] MEDS: TADALAFIL 20 MG PO SCH (11:09)
[2023-08-01] MEDS: Folic Acid 1 MG TAB PO SCH (21:34)
[2023-08-01] MEDS: Cyanocobalamin (Vitamin B-12) 1,000 MCG TAB PO SCH (21:34)
[2023-08-01] MEDS: Multivit, Therapeutic 1 TAB PO SCH (21:34)
[2023-08-02 01:11] LABS: Vancomycin, Trough 22.3 ug/mL
[2023-08-02] MEDS: Cefepime 1 GM in Sodium Chloride 0.9% 100 ML IVPB SCH ×2 (01:29→13:20)
[2023-08-02] MEDS ORDERED: Vancomycin HCl 500 MG in Sodium Chloride 0.9% 100 ML IVPB SCH (02:00)
[2023-08-02 03:32] LABS: #Eosinphils 0.2 10x3/uL (0.0-0.5); #Monocytes 0.4 10x3/uL (0.0-1.1); #Neutrophils 2.6 10x3/uL (1.5-8.4); %Basophils 0.8 % (0.0-2.0); %Eosinophils 4.5 % (0.0-6.0); %Lymphocytes 20.2 % (18.0-47.0); %Monocytes 9.3 % (0.0-10.0); %Neutrophils 64.7 % (40.0-75.0); Hemoglobin 12.8 g/dL (12.0-15.5); Mean Corpuscular Hemoglobin 31.1 pg (27.0-33.0); Mean Corpuscular Volume 97.1 fl (81.6-98.3); Mean Platelet Volume 11.5 fl (7.4-10.4); Platelet Count 106 10x3/uL (150-450); RBC Distribution Width 18.5 % (11.5-14.5); Red Blood Cell (RBC) Count 4.12 10x6/uL (3.90-5.03)
[2023-08-02 04:02] LABS: ALT (SGPT) 8 U/L (8-55); AST (SGOT) 21 U/L (5-34); Albumin 3.4 g/dL (3.5-5.0); Alkaline Phosphatase 105 U/L (40-110); Anion Gap 17 mmol/L (10-20); BUN (Urea Nitrogen) 19 mg/dL (7.0-18.7); Bilirubin, Total 1.6 mg/dL (0.2-1.2); Calc. Creatinine Clearance 111 mL/min (70-130); Calcium 8.9 mg/dL (7.8-10.44); Carbon Dioxide 26 mmol/L (22-29); Chloride 99 mmol/L (98-107); Estimated GFR 92; Globulin 4.4 g/dL (2.4-3.5); Glucose 89 mg/dL (70-105); Potassium 3.9 mmol/L (3.5-5.1); Protein, Total 7.8 g/dL (6.0-8.3); Sodium 138 mmol/L (136-145)
[2023-08-02 04:10] LABS: Platelet Adequacy Comment Appears Decreased; RBC Morph Comment Within Normal Limits
[2023-08-02] MEDS: Furosemide 40 MG/4 ML VIAL SLOW IVP SCH ×2 (06:41→13:37)
[2023-08-02] MEDS: Ipratropium/Albuterol 3 ML NEB NEB PRN ×3 (07:16→19:40)
[2023-08-02] MEDS: Budesonide 0.5 MG/2 ML NEB INH SCH ×2 (07:17→19:20)
[2023-08-02] MEDS: Potassium Chloride 20 MEQ TAB PO SCH (08:43)
[2023-08-02] MEDS: Escitalopram Oxalate 10 mg Tablet PO SCH (08:43)
[2023-08-02] MEDS: TADALAFIL 20 MG PO SCH (08:44)
[2023-08-02] MEDS: AMBRISENTAN 10 MG PO SCH (08:44)
[2023-08-02] MEDS: Topiramate 25 MG TAB PO SCH (08:45)
[2023-08-02] MEDS: Fluticasone Propionate Nasal Spray 16 gm Bottle NASAL SCH (13:20)
[2023-08-02] MEDS ORDERED: Furosemide 40 MG/4 ML VIAL SLOW IVP SCH (20:30)
[2023-08-02] MEDS: Folic Acid 1 MG TAB PO SCH (20:58)
[2023-08-02] MEDS: Ascorbic Acid 500 mg Chewable Tablet PO SCH (20:58)
[2023-08-02] MEDS: Cyanocobalamin (Vitamin B-12) 1,000 MCG TAB PO SCH (20:58)
[2023-08-02] MEDS: Multivit, Therapeutic 1 TAB PO SCH (20:58)
[2023-08-02] MEDS ORDERED: Magnesium 2 GM/50 ML(in water) 2 GM in Premix 1 BAG IVPB SCH (21:00)
[2023-08-03] MEDS: Cefepime 1 GM in Sodium Chloride 0.9% 100 ML IVPB SCH ×2 (00:09→13:35)
[2023-08-03] MEDS ORDERED: Guaifenesin DM 100-10/5 ML UDCUP PO SCH (00:30)
[2023-08-03] MEDS: Topiramate 25 MG TAB PO SCH ×4 (01:17→23:17)
[2023-08-03 04:57] LABS: #Eosinphils 0.1 10x3/uL (0.0-0.5); #Monocytes 0.4 10x3/uL (0.0-1.1); #Neutrophils 2.3 10x3/uL (1.5-8.4); %Basophils 1.1 % (0.0-2.0); %Eosinophils 3.8 % (0.0-6.0); %Lymphocytes 20.8 % (18.0-47.0); %Monocytes 10.4 % (0.0-10.0); %Neutrophils 63.1 % (40.0-75.0); Hematocrit 40.3 % (34.9-44.5); Hemoglobin 12.8 g/dL (12.0-15.5); Mean Corpuscular HGB CONC 31.8 g/dL (32.0-36.0); Mean Corpuscular Hemoglobin 30.7 pg (27.0-33.0); Mean Corpuscular Volume 96.6 fl (81.6-98.3); Mean Platelet Volume 10.8 fl (7.4-10.4); Platelet Count 108 10x3/uL (150-450); RBC Distribution Width 18.4 % (11.5-14.5); Red Blood Cell (RBC) Count 4.17 10x6/uL (3.90-5.03); White Blood Cell (WBC) Count 3.7 10x3/uL (3.5-10.5)
[2023-08-03 05:14] LABS: ALT (SGPT) 9 U/L (8-55); AST (SGOT) 19 U/L (5-34); Albumin 3.2 g/dL (3.5-5.0); Alkaline Phosphatase 97 U/L (40-110); Anion Gap 15 mmol/L (10-20); BUN (Urea Nitrogen) 17 mg/dL (7.0-18.7); Bilirubin, Total 1.2 mg/dL (0.2-1.2); Calc. Creatinine Clearance 118 mL/min (70-130); Calcium 8.6 mg/dL (7.8-10.44); Carbon Dioxide 28 mmol/L (22-29); Chloride 99 mmol/L (98-107); Estimated GFR 99; Globulin 4.4 g/dL (2.4-3.5); Glucose 91 mg/dL (70-105); Magnesium 2.4 mg/dL (1.6-2.6); Phosphorus 4.7 mg/dL (2.3-4.7); Potassium 3.6 mmol/L (3.5-5.1); Protein, Total 7.6 g/dL (6.0-8.3); Sodium 138 mmol/L (136-145)
[2023-08-03] MEDS: Budesonide 0.5 MG/2 ML NEB INH SCH ×2 (07:25→20:21)
[2023-08-03] MEDS: TADALAFIL 20 MG PO SCH (08:35)
[2023-08-03] MEDS: Fluticasone Propionate Nasal Spray 16 gm Bottle NASAL SCH (08:35)
[2023-08-03] MEDS: Furosemide 40 MG/4 ML VIAL SLOW IVP SCH ×2 (08:35→13:35)
[2023-08-03] MEDS: AMBRISENTAN 10 MG PO SCH (08:35)
[2023-08-03] MEDS: Potassium Chloride 20 MEQ TAB PO SCH (08:35)
[2023-08-03] MEDS: Escitalopram Oxalate 10 mg Tablet PO SCH (08:36)
[2023-08-03] MEDS: Ascorbic Acid 500 mg Chewable Tablet PO SCH (22:51)
[2023-08-03] MEDS: Cyanocobalamin (Vitamin B-12) 1,000 MCG TAB PO SCH (22:51)
[2023-08-03] MEDS: Multivit, Therapeutic 1 TAB PO SCH (22:52)
[2023-08-03] MEDS: Folic Acid 1 MG TAB PO SCH (22:52)
[2023-08-03] MEDS: guaiFENesin ER 600 MG TAB PO SCH (22:52)
[2023-08-03] MEDS: Guaifenesin DM 100-10/5 ML UDCUP PO PRN (22:53)
[2023-08-04] MEDS: Cefepime 1 GM in Sodium Chloride 0.9% 100 ML IVPB SCH ×2 (01:11→12:55)
[2023-08-04 04:53] LABS: #Basophils 0.1 10x3/uL (0.0-0.2); #Eosinphils 0.1 10x3/uL (0.0-0.5); #Monocytes 0.4 10x3/uL (0.0-1.1); %Basophils 1.1 % (0.0-2.0); %Eosinophils 3.1 % (0.0-6.0); %Lymphocytes 19.6 % (18.0-47.0); %Neutrophils 66.3 % (40.0-75.0); Hematocrit 42.2 % (34.9-44.5); Hemoglobin 13.7 g/dL (12.0-15.5); Mean Corpuscular HGB CONC 32.5 g/dL (32.0-36.0); Mean Corpuscular Hemoglobin 31.4 pg (27.0-33.0); Mean Corpuscular Volume 96.6 fl (81.6-98.3); Mean Platelet Volume 10.8 fl (7.4-10.4); Platelet Count 113 10x3/uL (150-450); RBC Distribution Width 18.3 % (11.5-14.5); Red Blood Cell (RBC) Count 4.37 10x6/uL (3.90-5.03); White Blood Cell (WBC) Count 4.5 10x3/uL (3.5-10.5)
[2023-08-04 05:01] LABS: Anion Gap 15 mmol/L (10-20); BUN (Urea Nitrogen) 18 mg/dL (7.0-18.7); Calc. Creatinine Clearance 119 mL/min (70-130); Calcium 9.1 mg/dL (7.8-10.44); Carbon Dioxide 27 mmol/L (22-29); Chloride 101 mmol/L (98-107); Estimated GFR 101; Glucose 85 mg/dL (70-105); Potassium 3.7 mmol/L (3.5-5.1); Sodium 139 mmol/L (136-145)
[2023-08-04] MEDS: Furosemide 40 MG/4 ML VIAL SLOW IVP SCH (06:35)
[2023-08-04] MEDS: Budesonide 0.5 MG/2 ML NEB INH SCH ×2 (07:41→19:31)
[2023-08-04] MEDS: guaiFENesin ER 600 MG TAB PO SCH ×2 (08:21→21:59)
[2023-08-04] MEDS: Potassium Chloride 20 MEQ TAB PO SCH ×2 (08:21→18:19)
[2023-08-04] MEDS: Ipratropium/Albuterol 3 ML NEB NEB SCH ×4 (11:00→23:52)
[2023-08-04] MEDS: Escitalopram Oxalate 10 mg Tablet PO SCH (11:38)
[2023-08-04] MEDS: AMBRISENTAN 10 MG PO SCH (11:38)
[2023-08-04] MEDS: TADALAFIL 20 MG PO SCH (11:38)
[2023-08-04] MEDS: Fluticasone Propionate Nasal Spray 16 gm Bottle NASAL SCH (11:38)
[2023-08-04] MEDS: Topiramate 25 MG TAB PO SCH ×2 (11:38→21:59)
[2023-08-04] MEDS: Furosemide 40 MG TAB PO SCH (13:00)
[2023-08-04] MEDS: Multivit, Therapeutic 1 TAB PO SCH (21:58)
[2023-08-04] MEDS: Amoxicillin/Potassium Clav 875 MG TAB PO SCH (21:58)
[2023-08-04] MEDS: Docusate 100 MG CAP PO SCH (21:58)
[2023-08-04] MEDS: Cyanocobalamin (Vitamin B-12) 1,000 MCG TAB PO SCH (21:58)
[2023-08-04] MEDS: Ascorbic Acid 500 mg Chewable Tablet PO SCH (21:59)
[2023-08-04] MEDS: Folic Acid 1 MG TAB PO SCH (21:59)
[2023-08-05] MEDS: Acetaminophen 325 MG TAB PO PRN (01:17)
[2023-08-05] MEDS: Guaifenesin DM 100-10/5 ML UDCUP PO PRN (01:23)
[2023-08-05] MEDS: Ipratropium/Albuterol 3 ML NEB NEB SCH ×6 (03:42→23:00)
[2023-08-05 05:39] LABS: #Basophils 0.1 10x3/uL (0.0-0.2); #Eosinphils 0.1 10x3/uL (0.0-0.5); #Monocytes 0.5 10x3/uL (0.0-1.1); #Neutrophils 2.8 10x3/uL (1.5-8.4); %Basophils 1.3 % (0.0-2.0); %Eosinophils 1.3 % (0.0-6.0); %Lymphocytes 21.6 % (18.0-47.0); %Monocytes 11.9 % (0.0-10.0); %Neutrophils 63.2 % (40.0-75.0); Hematocrit 42.7 % (34.9-44.5); Hemoglobin 13.9 g/dL (12.0-15.5); Mean Corpuscular HGB CONC 32.6 g/dL (32.0-36.0); Mean Corpuscular Hemoglobin 31.3 pg (27.0-33.0); Mean Corpuscular Volume 96.2 fl (81.6-98.3); Mean Platelet Volume 11.2 fl (7.4-10.4); Platelet Count 114 10x3/uL (150-450); RBC Distribution Width 18.2 % (11.5-14.5); Red Blood Cell (RBC) Count 4.44 10x6/uL (3.90-5.03); White Blood Cell (WBC) Count 4.5 10x3/uL (3.5-10.5)
[2023-08-05 05:54] LABS: Anion Gap 14 mmol/L (10-20); BUN (Urea Nitrogen) 19 mg/dL (7.0-18.7); Calc. Creatinine Clearance 112 mL/min (70-130); Calcium 9.5 mg/dL (7.8-10.44); Carbon Dioxide 27 mmol/L (22-29); Chloride 99 mmol/L (98-107); Estimated GFR 93; Glucose 88 mg/dL (70-105); Magnesium 1.9 mg/dL (1.6-2.6); Potassium 3.9 mmol/L (3.5-5.1); Sodium 136 mmol/L (136-145)
[2023-08-05] MEDS: Budesonide 0.5 MG/2 ML NEB INH SCH ×2 (07:43→19:40)
[2023-08-05] MEDS ORDERED: Magnesium 2 GM/50 ML(in water) 2 GM in Premix 1 BAG IVPB SCH (09:00)
[2023-08-05] MEDS: Topiramate 25 MG TAB PO SCH ×2 (09:18→21:24)
[2023-08-05] MEDS: TADALAFIL 20 MG PO SCH (09:18)
[2023-08-05] MEDS: Docusate 100 MG CAP PO SCH ×2 (09:19→21:24)
[2023-08-05] MEDS: Furosemide 40 MG TAB PO SCH ×2 (09:19→15:00)
[2023-08-05] MEDS: Amoxicillin/Potassium Clav 875 MG TAB PO SCH ×2 (09:19→21:24)
[2023-08-05] MEDS: AMBRISENTAN 10 MG PO SCH (09:19)
[2023-08-05] MEDS: Escitalopram Oxalate 10 mg Tablet PO SCH (09:19)
[2023-08-05] MEDS: Fluticasone Propionate Nasal Spray 16 gm Bottle NASAL SCH (09:20)
[2023-08-05] MEDS: Potassium Chloride 20 MEQ TAB PO SCH ×2 (09:20→18:00)
[2023-08-05] MEDS: guaiFENesin ER 600 MG TAB PO SCH ×2 (09:20→21:46)
[2023-08-05] MEDS: Ascorbic Acid 500 mg Chewable Tablet PO SCH (21:23)
[2023-08-05] MEDS: Multivit, Therapeutic 1 TAB PO SCH (21:24)
[2023-08-05] MEDS: Cyanocobalamin (Vitamin B-12) 1,000 MCG TAB PO SCH (21:25)
[2023-08-05] MEDS: Folic Acid 1 MG TAB PO SCH (21:25)
[2023-08-06] MEDS ORDERED: Furosemide 20 MG/2 ML VIAL SLOW IVP SCH (01:45)
[2023-08-06] MEDS: Ipratropium/Albuterol 3 ML NEB NEB SCH ×6 (02:58→22:31)
[2023-08-06 03:24] LABS: #Basophils 0.1 10x3/uL (0.0-0.2); #Eosinphils 0.1 10x3/uL (0.0-0.5); #Monocytes 0.4 10x3/uL (0.0-1.1); #Neutrophils 3.4 10x3/uL (1.5-8.4); %Basophils 1.4 % (0.0-2.0); %Lymphocytes 18.1 % (18.0-47.0); %Monocytes 8.9 % (0.0-10.0); %Neutrophils 68.8 % (40.0-75.0); Hematocrit 43.7 % (34.9-44.5); Hemoglobin 14.1 g/dL (12.0-15.5); Mean Corpuscular HGB CONC 32.3 g/dL (32.0-36.0); Mean Corpuscular Hemoglobin 31.3 pg (27.0-33.0); Mean Corpuscular Volume 96.9 fl (81.6-98.3); Platelet Count 122 10x3/uL (150-450); RBC Distribution Width 18.6 % (11.5-14.5); Red Blood Cell (RBC) Count 4.51 10x6/uL (3.90-5.03)
[2023-08-06 04:18] LABS: Anion Gap 15 mmol/L (10-20); BUN (Urea Nitrogen) 17 mg/dL (7.0-18.7); Calc. Creatinine Clearance 118 mL/min (70-130); Calcium 9.5 mg/dL (7.8-10.44); Carbon Dioxide 23 mmol/L (22-29); Chloride 100 mmol/L (98-107); Estimated GFR 99; Glucose 87 mg/dL (70-105); Magnesium 2.1 mg/dL (1.6-2.6); Potassium 3.9 mmol/L (3.5-5.1); Sodium 134 mmol/L (136-145)
[2023-08-06] MEDS: Budesonide 0.5 MG/2 ML NEB INH SCH ×2 (07:03→19:44)
[2023-08-06] MEDS: Topiramate 25 MG TAB PO SCH ×2 (09:19→21:55)
[2023-08-06] MEDS: Escitalopram Oxalate 10 mg Tablet PO SCH (09:20)
[2023-08-06] MEDS: Furosemide 40 MG TAB PO SCH ×2 (09:20→14:28)
[2023-08-06] MEDS: Docusate 100 MG CAP PO SCH ×2 (09:20→21:55)
[2023-08-06] MEDS: Amoxicillin/Potassium Clav 875 MG TAB PO SCH ×2 (09:20→21:54)
[2023-08-06] MEDS: TADALAFIL 20 MG PO SCH (09:20)
[2023-08-06] MEDS: Spironolactone 25 MG TAB PO SCH (09:20)
[2023-08-06] MEDS: AMBRISENTAN 10 MG PO SCH (09:20)
[2023-08-06] MEDS: Potassium Chloride 20 MEQ TAB PO SCH (09:21)
[2023-08-06] MEDS: Fluticasone Propionate Nasal Spray 16 gm Bottle NASAL SCH (09:22)
[2023-08-06] MEDS: guaiFENesin ER 600 MG TAB PO SCH ×2 (09:57→21:54)
[2023-08-06] MEDS ORDERED: Furosemide 40 MG TAB PO SCH (20:00)
[2023-08-06] MEDS: Cyanocobalamin (Vitamin B-12) 1,000 MCG TAB PO SCH (21:54)
[2023-08-06] MEDS: Multivit, Therapeutic 1 TAB PO SCH (21:54)
[2023-08-06] MEDS: Folic Acid 1 MG TAB PO SCH (21:54)
[2023-08-06] MEDS: Ascorbic Acid 500 mg Chewable Tablet PO SCH (21:56)
[2023-08-07] MEDS: Acetaminophen 325 MG TAB PO PRN ×2 (00:55→17:17)
[2023-08-07] MEDS: Ipratropium/Albuterol 3 ML NEB NEB SCH ×6 (02:46→22:57)
[2023-08-07 03:43] LABS: #Basophils 0.1 10x3/uL (0.0-0.2); #Eosinphils 0.1 10x3/uL (0.0-0.5); #Monocytes 0.5 10x3/uL (0.0-1.1); #Neutrophils 4.4 10x3/uL (1.5-8.4); %Basophils 1.5 % (0.0-2.0); %Eosinophils 1.5 % (0.0-6.0); %Lymphocytes 16.8 % (18.0-47.0); %Monocytes 8.6 % (0.0-10.0); %Neutrophils 71.1 % (40.0-75.0); Hematocrit 40.6 % (34.9-44.5); Mean Corpuscular Volume 96.7 fl (81.6-98.3); Mean Platelet Volume 11.3 fl (7.4-10.4); Platelet Count 116 10x3/uL (150-450); RBC Distribution Width 18.8 % (11.5-14.5); White Blood Cell (WBC) Count 6.1 10x3/uL (3.5-10.5)
[2023-08-07 03:54] LABS: Anion Gap 14 mmol/L (10-20); BUN (Urea Nitrogen) 21 mg/dL (7.0-18.7); Calc. Creatinine Clearance 108 mL/min (70-130); Calcium 9.2 mg/dL (7.8-10.44); Carbon Dioxide 24 mmol/L (22-29); Chloride 99 mmol/L (98-107); Estimated GFR 89; Glucose 87 mg/dL (70-105); Magnesium 1.8 mg/dL (1.6-2.6); Potassium 4.2 mmol/L (3.5-5.1); Sodium 133 mmol/L (136-145)
[2023-08-07] MEDS: Budesonide 0.5 MG/2 ML NEB INH SCH ×2 (07:35→19:16)
[2023-08-07] MEDS: Amoxicillin/Potassium Clav 875 MG TAB PO SCH ×2 (09:47→21:08)
[2023-08-07] MEDS: Potassium Chloride 20 MEQ TAB PO SCH (09:47)
[2023-08-07] MEDS: Furosemide 40 MG TAB PO SCH ×2 (09:47→14:18)
[2023-08-07] MEDS: Escitalopram Oxalate 10 mg Tablet PO SCH (09:47)
[2023-08-07] MEDS: Docusate 100 MG CAP PO SCH ×2 (09:47→21:09)
[2023-08-07] MEDS: Spironolactone 25 MG TAB PO SCH (09:47)
[2023-08-07] MEDS: guaiFENesin ER 600 MG TAB PO SCH ×2 (09:48→21:08)
[2023-08-07] MEDS: AMBRISENTAN 10 MG PO SCH (09:48)
[2023-08-07] MEDS: Topiramate 25 MG TAB PO SCH ×2 (09:48→22:49)
[2023-08-07] MEDS: TADALAFIL 20 MG PO SCH (09:48)
[2023-08-07] MEDS: Fluticasone Propionate Nasal Spray 16 gm Bottle NASAL SCH (09:48)
[2023-08-07] MEDS ORDERED: Magnesium Sulfate 4 GM in Sodium Chloride 0.9% 250 ML 250 ML IVPB SCH (10:30)
[2023-08-07] MEDS: Magnesium 2 GM/50 ML(in water) 2 GM in Premix 1 BAG IVPB SCH ×2 (11:00→12:19)
[2023-08-07] MEDS ORDERED: Furosemide 40 MG TAB PO SCH (18:00)
[2023-08-07] MEDS: Ascorbic Acid 500 mg Chewable Tablet PO SCH (21:08)
[2023-08-07] MEDS: Multivit, Therapeutic 1 TAB PO SCH (21:08)
[2023-08-07] MEDS: Folic Acid 1 MG TAB PO SCH (21:08)
[2023-08-07] MEDS: Cyanocobalamin (Vitamin B-12) 1,000 MCG TAB PO SCH (21:09)
[2023-08-07] MEDS: Guaifenesin DM 100-10/5 ML UDCUP PO PRN (22:49)
[2023-08-08] MEDS: Ipratropium/Albuterol 3 ML NEB NEB SCH ×3 (02:48→10:29)
[2023-08-08 03:28] LABS: #Basophils 0.1 10x3/uL (0.0-0.2); #Eosinphils 0.1 10x3/uL (0.0-0.5); #Monocytes 0.6 10x3/uL (0.0-1.1); %Basophils 1.3 % (0.0-2.0); %Eosinophils 1.3 % (0.0-6.0); %Lymphocytes 13.2 % (18.0-47.0); %Monocytes 9.5 % (0.0-10.0); %Neutrophils 74.1 % (40.0-75.0); Hemoglobin 13.2 g/dL (12.0-15.5); Mean Corpuscular HGB CONC 32.2 g/dL (32.0-36.0); Mean Corpuscular Hemoglobin 31.2 pg (27.0-33.0); Mean Corpuscular Volume 96.9 fl (81.6-98.3); Mean Platelet Volume 11.9 fl (7.4-10.4); Platelet Count 124 10x3/uL (150-450); RBC Distribution Width 18.7 % (11.5-14.5); Red Blood Cell (RBC) Count 4.23 10x6/uL (3.90-5.03); White Blood Cell (WBC) Count 6.7 10x3/uL (3.5-10.5)
[2023-08-08 03:55] LABS: Anion Gap 16 mmol/L (10-20); BUN (Urea Nitrogen) 21 mg/dL (7.0-18.7); Calc. Creatinine Clearance 111 mL/min (70-130); Calcium 9.1 mg/dL (7.8-10.44); Carbon Dioxide 22 mmol/L (22-29); Chloride 101 mmol/L (98-107); Estimated GFR 92; Glucose 87 mg/dL (70-105); Magnesium 2.2 mg/dL (1.6-2.6); Potassium 3.8 mmol/L (3.5-5.1); Sodium 135 mmol/L (136-145)
[2023-08-08] MEDS: Budesonide 0.5 MG/2 ML NEB INH SCH (07:30)
[2023-08-08] MEDS: AMBRISENTAN 10 MG PO SCH (10:24)
[2023-08-08] MEDS: guaiFENesin ER 600 MG TAB PO SCH (10:24)
[2023-08-08] MEDS: Docusate 100 MG CAP PO SCH (10:25)
[2023-08-08] MEDS: Amoxicillin/Potassium Clav 875 MG TAB PO SCH (10:25)
[2023-08-08] MEDS: Topiramate 25 MG TAB PO SCH (10:26)
[2023-08-08] MEDS: Spironolactone 25 MG TAB PO SCH (10:26)
[2023-08-08] MEDS: Furosemide 40 MG TAB PO SCH ×2 (10:27→13:51)
[2023-08-08] MEDS: Escitalopram Oxalate 10 mg Tablet PO SCH (10:27)
[2023-08-08] MEDS: TADALAFIL 20 MG PO SCH (10:28)
[2023-08-08] MEDS: Acetaminophen 325 MG TAB PO PRN (10:28)
[2023-08-08] MEDS: Fluticasone Propionate Nasal Spray 16 gm Bottle NASAL SCH (10:37)
[2023-08-08] MEDS: Potassium Chloride 20 MEQ TAB PO SCH (10:37)
[2023-08-08 12:58] VITALS: BP 99/60; TEMP 98.5
== END 2023-08-08 14:01 | disposition swing bed (61) | DRG 291 ==
LOC: CSHERS 10:33 → CSHTELE 13:32 → CSHIMCU 13:35 → CSHTELE 07-28 15:42 → CSHICU 07-30 10:21 → CSHTELE 08-02 16:04
PROVIDERS: ADMIT Internal Medicine; ATTEND Internal Medicine
PROC: 5A09457 Assistance with Respiratory Ventilation, 24-96 Consecutive Hours, Continuous Positive Airway Pressure (ICD-10-PCS; 2023-07-27)
PROC: 30233J1 Transfusion of Nonautologous Serum Albumin into Peripheral Vein, Percutaneous Approach (ICD-10-PCS; 2023-07-30)
PROC: 4A043R1 Measurement of Venous Saturation, Peripheral, Percutaneous Approach (ICD-10-PCS; principal; 2023-07-31)
DX: I11.0 Hypertensive heart disease with heart failure (principal); I50.33 Acute on chronic diastolic (congestive) heart failure; J96.01 Acute respiratory failure with hypoxia; J69.0 Pneumonitis due to inhalation of food and vomit; E87.1 Hypo-osmolality and hyponatremia; Z66 Do not resuscitate; Q90.9 Down syndrome, unspecified; I95.9 Hypotension, unspecified; D69.6 Thrombocytopenia, unspecified; D72.819 Decreased white blood cell count, unspecified; E66.9 Obesity, unspecified; G47.33 Obstructive sleep apnea (adult) (pediatric); R53.81 Other malaise; E83.42 Hypomagnesemia; Z88.8 Allergy status to other drugs, medicaments and biological substances; Z88.5 Allergy status to narcotic agent; Z79.899 Other long term (current) drug therapy; Z79.2 Long term (current) use of antibiotics; Z90.89 Acquired absence of other organs; Z98.890 Other specified postprocedural states; Z68.30 Body mass index [BMI] 30.0-30.9, adult; Z11.52 Encounter for screening for COVID-19
CPT/HCPCS: 0241U; 36415; 71045; 80048; 80053; 80202; 82805; 83735; 83880; 84100; 84484; 85025; 87040; 87070; 87205; 87633; 87798; 93005; 94640; 94660; 94664; 94667; 94668; 94760; 94762; 96374; J0692; J1650; J1940; J3370; J3475; J3490; J7030; J7050; J7620; J7626; P9047